=== PATIENT | female | born 1965 | race Caucasian/White ===

== ENCOUNTER 2021-03-19 02:54 | Emergency (ER) | payer OTHER, SELFPAY ==
--- NOTE | ~2021-03-19 | XR_ITS ---
EXAMINATION: XR CHEST CLINICAL INFORMATION: Chest pain COMPARISON: 01/05/2019 TECHNIQUE: Frontal view of the chest was obtained. FINDINGS: The lungs are clear with no focal consolidation. No evidence of pneumothorax, pulmonary edema, or pleural effusions. The cardiomediastinal silhouette is unremarkable. No acute osseous findings. XR/XR chest 1V IMPRESSION: No acute cardiopulmonary findings.
[2021-03-19 03:02] VITALS: BP 120/75; BP 124/72; PULSE 85; PULSE 88; RESP 20; TEMP 36.8; O2SAT 100; O2SAT 99; BMI 23.4
--- NOTE | 2021-03-19 03:02 | ECG_ITS ---
Test Reason : CP Blood Pressure : / mmHG Vent. Rate : 081 BPM Atrial Rate : 081 BPM P-R Int : 164 ms QRS Dur : 076 ms QT Int : 404 ms P-R-T Axes : 064 052 065 degrees QTc Int : 469 ms Normal sinus rhythm Normal ECG When compared with ECG of 05-JAN-2019 13:17, No significant change was found Referred By: Cleopatra Schreiber Electronically Signed By:ANNA REYES
[2021-03-19 03:26] VITALS: BP 124/72; PULSE 81; RESP 20; O2SAT 98
[2021-03-19 03:33] LABS: MANUAL DIFF FLAG NO
[2021-03-19 03:35] LABS: Basophils Percent Auto 0.6 % (0-2); Eosinophils Absolute Auto 0.1 X10*3/uL (0.0-0.4); Eosinophils Percent Auto 0.8 % (0-4); Hematocrit 47.3 % (37-47); Imm Gran Abs Auto 0.01 X10*3/uL (0.00-0.03); Imm Gran Pct Auto 0.2 % (0.0-0.4); Lymphocytes Absolute Auto 2.4 X10*3/uL (1.2-4.9); Lymphocytes Percent Auto 35.4 % (20-40); Mean Corpuscular HGB Conc 33.8 g/dl (31.0-35.0); Mean Corpuscular Hemoglobin 33.2 pg (27.0-33.0); Mean Corpuscular Volume 98.1 fL (80-98); Mean Platelet Volume 10.3 fL (9.4-12.3); Monocytes Absolute Auto 0.5 X10*3/uL (0.1-1.2); Neutrophils Absolute Auto 3.7 X10*3/uL (2.0-8.3); Platelet Count 189 X10*3/uL (160-400); Red Blood Count 4.82 X10*6/uL (4.20-5.50); Red Cell Distribution Width 14.6 % (11.0-16.0); White Blood Count 6.7 X10*3/uL (4.8-10.8)
--- NOTE | 2021-03-19 03:52 | ED.CHESTPAIN ---
HPI - Chest Pain General Chief Complaint: Chest Pain Stated Complaint: cp Time Seen by Provider: 03/19/21 03:40 Source: patient Mode of arrival: EMS History of Present Illness HPI narrative: 56-year-old female who is brought in by EMS for complaints of lateral chest wall pain for 4 days that is worse with deep inspiration and not associated with fever, chills, nausea, vomiting, diarrhea, and is and nonradiating. Patient states that she has a chronic cough secondary to smoking. Patient denies any urinary pain/burning/frequency. She denies any traumatic injury, or falls. Related Data Previous Rx's Medication Instructions Recorded cyclobenzaprine 10 mg tablet 10 mg PO TID #90 tab 09/09/20 lorazepam 0.5 mg tablet 0.5 mg PO TID PRN #90 tab 09/16/20 hydroxyzine pamoate 25 mg capsule 25 mg PO QID PRN #60 cap 11/16/20 fluoxetine 20 mg capsule 40 mg PO DAILY #90 cap 01/24/21 pantoprazole 40 mg tablet,delayed 40 mg PO DAILY #90 tab 03/07/21 release tramadol 50 mg tablet 50 mg PO Q6H PRN #60 tab 03/18/21 zolpidem 5 mg tablet 5 mg PO BEDTIME PRN #90 tab 03/18/21 Allergies Allergy/AdvReac Type Severity Reaction Status Date / Time famotidine [From Pepcid] Allergy Severe IV Verified 03/19/21 03:06 PEPCID-RESP ARREST bee pollen [BEE STINGS] Allergy Unknown ANAPHYLAXIS Verified 03/19/21 03:06 cat dander [CATS] Allergy Unknown UNKNOWN Verified 03/19/21 03:06 codeine [CODEINE] Allergy Unknown STOMACH Verified 03/19/21 03:06 UPSET NSAIDS (Non-Steroidal Allergy Unknown STOMACH Verified 03/19/21 03:06 Anti-Inflamma ULCERS [NSAIDS (NON-STEROIDAL ANTI-INFLAMMA] strawberry [STRAWBERRY] Allergy Unknown HIVESD Verified 03/19/21 03:06 ibuprofen AdvReac Unknown ulcer Verified 03/19/21 03:06 bees Allergy Unknown anaphylaxis Uncoded 03/19/21 03:06 Codeine Sulfate Allergy Unknown stomach Uncoded 03/19/21 03:06 upset HAYFEVER Allergy Unknown UNKNOWN Uncoded 03/19/21 03:06 IV PEPCID Allergy Unknown anaphylaxis Uncoded 03/19/21 03:06 IV pepcid Allergy Unknown Anaphylaxis Uncoded 03/19/21 03:06 strawberries Allergy Unknown hives Uncoded 03/19/21 03:06 NSAIDS AdvReac Unknown ulcers Uncoded 03/19/21 03:06 Review of Systems Review of Systems: Pertinent positives and negatives as stated in HPI and 10 point review systems is otherwise negative. [facility] Past Medical History Source: nursing notes reviewed Social History Social History Alcohol intake: current Alcohol intake frequency: a few times a week Smoking Status: Current every day smoker Use of substances other than those prescribed or required for medical reasons: No Advance Directives: No Advance Directives Information Provided: No Patient : No Physical Exam Vital Signs: Vital Signs: Last Vital Signs Temp 98.2 F 03/19/21 03:02 Pulse 82 03/19/21 04:12 Resp 22 H 03/19/21 04:12 BP 127/93 H 03/19/21 04:12 Pulse Ox 96 03/19/21 04:12 Body Mass Index 23.4 VITAL SIGNS: Reviewed. GENERAL: Well developed, well nourished, in no acute distress. HEAD: Normocephalic/atraumatic, EYES: PERRLA, EOMI OROPHARYNX: no oral lesions noted, posterior pharynx clear NECK: Supple, no adenopathy LUNGS: Normal breath sounds. No adventitious sounds or accessory muscle use. SpO2<96> CARDIOVASCULAR: Regular rate and rhythm without noted murmurs ABDOMEN: Soft, non-tender, non-distended with bowel sounds. MUSCULOSKELETAL: No tenderness, deformities, or effusions noted on gross inspection. EXTREMITIES: No cyanosis, clubbing or edema. SKIN: Inspection of the skin reveals no rashes NEUROLOGIC: Alert and oriented x 4. Strength and sensation to light touch were grossly intact x 4. Course Course Course Narrative: 56-year-old female with history and clinical presentation suggestive possible pancreatitis, gastritis, but less likely pneumonia or renal colic. Review of all investigations acute findings, to include EKG and high sensitivity troponin are not indicative cardiac etiology. Reevaluation(s) Reevaluation #1: Patient became very irate, pulled out her IV, and requested to be discharged. Time: 04:40 MDM - Chest Pain Lab Data Result diagrams: 03/19/21 03:25 03/19/21 03:25 Labs: Lab Results 03/19/21 03/19/21 03/19/21 Range/Units 03:25 03:25 03:25 WBC 6.7 (4.8-10.8) X10*3/uL RBC 4.82 (4.20-5.50) X10*6/uL Hgb 16.0 (12.0-16.0) g/dl Hct 47.3 H (37-47) % MCV 98.1 H (80-98) fL MCH 33.2 H (27.0-33.0) pg MCHC 33.8 (31.0-35.0) g/dl RDW 14.6 (11.0-16.0) % Plt Count 189 (160-400) X10*3/uL MPV 10.3 (9.4-12.3) fL Immature Gran % (Auto) 0.2 (0.0-0.4) % Neut % (Auto) 55.0 (45-73) % Lymph % (Auto) 35.4 (20-40) % [place] % (Auto) 8.0 (2-11) % Eos % (Auto) 0.8 (0-4) % Baso % (Auto) 0.6 (0-2) % Lymph # (Auto) 2.4 (1.2-4.9) X10*3/uL [place] # (Auto) 0.5 (0.1-1.2) X10*3/uL Eos # (Auto) 0.1 (0.0-0.4) X10*3/uL Baso # (Auto) 0.0 (0.0-0.2) X10*3/uL Abs Immat Gran (auto) 0.01 (0.00-0.03) X10*3/uL Absolute Neuts (auto) 3.7 (2.0-8.3) X10*3/uL Absolute Nucleated RBC 0.000 (0.0-0.012) X10*3/uL Nucleated RBC % (auto) 0.0 (0.0-0.2) /100WBC Hold Blue Top SEE NOTE Sodium 143 (135-145) mmol/L Potassium 3.7 (3.3-5.1) mmol/L Chloride 104 (96-108) mmol/L Carbon Dioxide 30 H (22-29) mmol/L Anion Gap 13 (12-20) BUN 8 L (9-16) mg/dL Creatinine 0.81 (0.5-1.4) mg/dL Estim Creat Clear Calc 78.2 Estimated GFR > 60 Random Glucose 73 (60-115) mg/dL Calcium 9.4 (8.4-10.2) mg/dL Troponin I High Sens (<3.5-17.0) ng/L Lipase 17 (8-78) U/L 03/19/21 03/19/21 Range/Units 03:25 03:25 WBC (4.8-10.8) X10*3/uL RBC (4.20-5.50) X10*6/uL Hgb (12.0-16.0) g/dl Hct (37-47) % MCV (80-98) fL MCH (27.0-33.0) pg MCHC (31.0-35.0) g/dl RDW (11.0-16.0) % Plt Count (160-400) X10*3/uL MPV (9.4-12.3) fL Immature Gran % (Auto) (0.0-0.4) % Neut % (Auto) (45-73) % Lymph % (Auto) (20-40) % [place] % (Auto) (2-11) % Eos % (Auto) (0-4) % Baso % (Auto) (0-2) % Lymph # (Auto) (1.2-4.9) X10*3/uL [place] # (Auto) (0.1-1.2) X10*3/uL Eos # (Auto) (0.0-0.4) X10*3/uL Baso # (Auto) (0.0-0.2) X10*3/uL Abs Immat Gran (auto) (0.00-0.03) X10*3/uL Absolute Neuts (auto) (2.0-8.3) X10*3/uL Absolute Nucleated RBC (0.0-0.012) X10*3/uL Nucleated RBC % (auto) (0.0-0.2) /100WBC Hold Blue Top Sodium (135-145) mmol/L Potassium (3.3-5.1) mmol/L Chloride (96-108) mmol/L Carbon Dioxide (22-29) mmol/L Anion Gap (12-20) BUN (9-16) mg/dL Creatinine (0.5-1.4) mg/dL Estim Creat Clear Calc Estimated GFR Random Glucose (60-115) mg/dL Calcium (8.4-10.2) mg/dL Troponin I High Sens < 3.5 (<3.5-17.0) ng/L Lipase Cancelled (8-78) U/L ECG Data ECG #1: Attestation: I personally reviewed and interpreted this ECG as follows: Prior ECG tracings: available for review (01/05/2019 no acute changes on comparison) Interpretation: Normal sinus rhythm, HR-81, no evidence of acute ischemia, RI/QRS/QTC are within normal limits. Discharge Plan Discharge Clinical Impression: Atypical chest pain, Costochondritis Patient Disposition: Home, Self-Care Instructions: Chest Wall Pain (ED), Costochondritis (ED) Additional Instructions: Please follow-up with your primary care provider in the next 2-3 days for re-evaluation. Return to the emergency department should you experience any acute worsening of your symptoms. Prescriptions: No Action cyclobenzaprine 10 mg tablet 10 mg PO TID Qty: 90 RF: 6 lorazepam 0.5 mg tablet 0.5 mg PO TID PRN (Reason: anxiety) Qty: 90 RF: 5 fluoxetine 20 mg capsule 40 mg PO DAILY Qty: 90 RF: 8 pantoprazole 40 mg tablet,delayed release (DR/EC) 40 mg PO DAILY Qty: 90 RF: 8 zolpidem 5 mg tablet 5 mg PO BEDTIME PRN (Reason: insomnia) Qty: 90 RF: 5 tramadol 50 mg tablet 50 mg PO Q6H PRN (Reason: pain) Qty: 60 RF: 5 hydroxyzine pamoate 25 mg capsule 25 mg PO QID PRN (Reason: itching) Qty: 60 RF: 0 Referrals: Eric Morales MD [Primary Care Provider] - 2 days
[2021-03-19] MEDS: Acetaminophen 325 MG TABLET 975 MG PO (03:55)
[2021-03-19 04:03] LABS: Anion Gap 13 (12-20); Blood Urea Nitrogen 8 mg/dL (9-16); Calcium 9.4 mg/dL (8.4-10.2); Carbon Dioxide 30 mmol/L (22-29); Chloride 104 mmol/L (96-108); Creatinine Clr Calc Pharmacy 78.2; Estimated Glomerular Filt Rate > 60; Glucose Random 73 mg/dL (60-115); Lipase 17 U/L (8-78); Potassium 3.7 mmol/L (3.3-5.1); Sodium 143 mmol/L (135-145)
[2021-03-19 04:07] LABS: Troponin-I High Sensitivity < 3.5 ng/L (<3.5-17.0)
[2021-03-19 04:12] VITALS: BP 127/93; PULSE 82; RESP 22; O2SAT 96
[2021-03-19] MEDS: Lidocaine HCl Viscous 2 % 15 ML SOLUTION 10 ML MUCOUS MEM (04:13)
[2021-03-19] MEDS: Magnesium Hydrox/Alum Hydrox 30 ML ORAL.SUSP PO (04:14)
--- NOTE | 2021-03-19 04:45 | PC.NURSE ---
Pt came out into hallway and removed her IV, yelled that she has been neglected for hours, and that nobody has come to help me. This RN to bedside, asks pt what this RN is able to do to assist pt with current needs. Pt states I know it's not my GI tract, so I am going home where people will ignore me there too. This RN makes Dr Schreiber aware. Dr Schreiber to pt's room, updates pt on lab and imaging findings. Pt states I just want my papers so I can leave.
== END 2021-03-19 05:09 | disposition home or self-care (01) ==
PROVIDERS: Emergency Provider Student in an Organized Health Care Education/Training Program; PCP Internal Medicine
DX: R07.89 Other chest pain (principal); M94.0 Chondrocostal junction syndrome [Tietze]; F17.200 Nicotine dependence, unspecified, uncomplicated
CPT/HCPCS: 36415; 71045; 80048; 83690; 84484; 85025; 93005; 99283; 99285

== ENCOUNTER 2021-05-03 08:54 | Outpatient (REF) | payer OTHER, SELFPAY ==
[2021-05-03 14:29] LABS: CT PCR NOT DETECTED (Not Detect.); NG PCR NOT DETECTED (Not Detect.)
[2021-05-04 09:37] LABS: BV Int Neg Control Negative (Negative); BV Int Pos Control Positive (Positive)
[2021-05-05 22:27] LABS: HPV mRNA E6/E7 rflx Not Detected (Not Detected)
== END 2021-05-03 08:55 | disposition home or self-care (01) ==
LOC: HO.LAB 08:54
PROVIDERS: Visit Provider Advanced Practice Midwife
DX: N93.0 Postcoital and contact bleeding (principal); N95.2 Postmenopausal atrophic vaginitis; N95.0 Postmenopausal bleeding; S39.93XA Unspecified injury of pelvis, initial encounter; X58.XXXA Exposure to other specified factors, initial encounter; Y93.9 Activity, unspecified; Y92.9 Unspecified place or not applicable; Y99.9 Unspecified external cause status
CPT/HCPCS: 87480; 87491; 87510; 87591; 87624; 87660; 88142; 99202

== ENCOUNTER 2021-06-15 11:01 | Outpatient (REF) | payer OTHER, SELFPAY ==
--- NOTE | ~2021-06-15 | US_ITS ---
EXAMINATION: PELVIC ULTRASOUND CLINICAL INFORMATION: Postmenopausal bleeding COMPARISON: Previous CT of the abdomen and pelvis most recent February 2019 TECHNIQUE: Transabdominal and transvaginal pelvic ultrasound was performed. Transvaginal exam was performed for better visualization of the uterus and ovaries. FINDINGS: The uterus is retroverted and measures 6.4 x 3.7 x 5.1 cm in dimension. No focal uterine lesion is seen. Endometrial thickness is normal measuring 0.3 cm. The ovaries are normal-appearing. The right ovary measures 2.9 x 1.3 x 1.4 cm. The left ovary measures 2.2 x 1.2 x 1.2 cm. There is no fluid in the pelvis. US/US pelvic and transvaginal IMPRESSION: Unremarkable exam.
== END 2021-06-15 11:02 | disposition home or self-care (01) ==
LOC: HO.US 11:01
PROVIDERS: Visit Provider Advanced Practice Midwife
DX: N95.0 Postmenopausal bleeding (principal)
CPT/HCPCS: 76830; 76856

== ENCOUNTER → 2021-06-22 11:16 | Outpatient (BNVA) | payer OTHER, SELFPAY | PROVIDERS: PCP Internal Medicine; Visit Provider Advanced Practice Midwife | DX: N95.0 Postmenopausal bleeding (principal); Z71.2 Person consulting for explanation of examination or test findings | CPT/HCPCS: Q3014 ==

== ENCOUNTER 2021-09-07 21:09 | Emergency (ER) | payer OTHER, SELFPAY ==
--- NOTE | ~2021-09-07 | XR_ITS ---
EXAMINATION: XR CHEST CLINICAL INFORMATION: Chest pain. Back pain Fall. COMPARISON: Chest x-ray March 19, 2021 TECHNIQUE: 2 views of the chest were obtained. FINDINGS: No significant abnormality is noted involving the heart, lungs, mediastinum, bony thorax or soft tissues. XR/XR chest 2V IMPRESSION: Unremarkable examination.
--- NOTE | ~2021-09-07 | XR_ITS ---
EXAMINATION: XR ELBOW, RIGHT CLINICAL INFORMATION: Pain after a fall COMPARISON: None TECHNIQUE: Single lateral view of the right elbow. Patient was unable to straighten elbow for other images. FINDINGS: No fracture. No dislocation. No joint effusion. XR/XR elbow RT 2V IMPRESSION: Normal single lateral view of the elbow.
[2021-09-07 21:20] VITALS: BP 98/68; PULSE 98; RESP 17; TEMP 35.9; O2SAT 97; BMI 21.2
--- NOTE | 2021-09-07 22:01 | ED.FALL ---
HPI - Fall General Chief Complaint: Fall Stated Complaint: fell, hit arm and head Time Seen by Provider: 09/07/21 22:01 Source: patient Mode of arrival: ambulatory Limitations: no limitations History of Present Illness HPI Narrative: This is a 56 years old of female presented ambulatory to the emergency department after a fall. She states that she fell on Sunday 4 days ago a since then she has been having chest wall pain in the right and the right elbow pain. She states that she took nonsteroidal anti-inflammatory and Flexeril without any relief of the pain MD complaint: fall Onset (ago): day(s) (4) Fall from: standing Place fall occurred: street Loss of consciousness: none Prolonged down time: no Symptoms prior to fall: none Context: tripped/slipped Related Data Previous Rx's Medication Instructions Recorded hydroxyzine pamoate 25 mg capsule 25 mg PO QID PRN #60 cap 11/16/20 fluoxetine 20 mg capsule 40 mg PO DAILY #90 cap 01/24/21 tramadol 50 mg tablet 50 mg PO Q6H PRN #60 tab 03/18/21 zolpidem 5 mg tablet 5 mg PO BEDTIME PRN #90 tab 03/18/21 lorazepam 0.5 mg tablet 0.5 mg PO TID PRN #90 tab 04/19/21 metronidazole 500 mg tablet 500 mg PO BID 7 Days #14 tab 05/05/21 (Flagyl) ropinirole 3 mg tablet 3 mg PO QPM #90 tab 05/09/21 cyclobenzaprine 10 mg tablet 10 mg PO TID #90 tab 05/25/21 albuterol sulfate 90 mcg/actuation 2 puff PO Q4H PRN #8.5 g 08/26/21 aerosol inhaler azithromycin 250 mg tablet See Rx Instructions PO .COMPLEX #6 08/26/21 tab oxycodone 5 mg tablet 5 mg PO BID PRN #8 tab 09/07/21 Allergies Allergy/AdvReac Type Severity Reaction Status Date / Time famotidine [From Pepcid] Allergy Severe IV Verified 09/07/21 21:20 PEPCID-RESP ARREST bee pollen [BEE STINGS] Allergy Unknown ANAPHYLAXIS Verified 09/07/21 21:20 cat dander [CATS] Allergy Unknown UNKNOWN Verified 09/07/21 21:20 codeine [CODEINE] Allergy Unknown STOMACH Verified 09/07/21 21:20 UPSET NSAIDS (Non-Steroidal Allergy Unknown STOMACH Verified 09/07/21 21:20 Anti-Inflamma ULCERS [NSAIDS (NON-STEROIDAL ANTI-INFLAMMA] strawberry [STRAWBERRY] Allergy Unknown HIVESD Verified 09/07/21 21:20 Antihistamines - Alkylamine AdvReac Mild Agitated Verified 09/07/21 21:20 ibuprofen AdvReac Unknown ulcer Verified 09/07/21 21:20 HAYFEVER Allergy Unknown UNKNOWN Uncoded 09/07/21 21:20 Review of Systems Review of Systems: Yes all other systems are reviewed and are negative Constitutional: Constitutional: Reports no additional constitutional complaints ENT: Reports system reviewed and no additional complaints, except as documented Cardiovascular: Cardiovascular: Reports no additional cardiovascular complaints Respiratory: Respiratory: Denies chest congestion, Denies cough and Denies hemoptysis Musculoskeletal: Musculoskeletal: Reports no additional musculoskeletal complaints PMFSH Past Medical History Medical History Adhesion of intestine Asthma Colitis Colon obstruction History of anxiety History of depression History of fibromyalgia Hx of migraine headaches Parkinson disease PTSD (post-traumatic stress disorder) Restless leg syndrome Surgical History H/O colectomy History of loop electrical excision procedure (LEEP) Hx of section Hx of tubal ligation Family History Family History Mother Cervical cancer Ovarian cancer Colon cancer Sister Breast cancer Social History Social History Alcohol intake: current Alcohol intake frequency: a few times a week Patient Tobacco Use Status: Current everyday Tobacco user Cigarettes Per Day: 4 Advance Directives: No Physical Exam Vital Signs: Vital Signs: Last Vital Signs Temp 96.7 F L 09/07/21 21:20 Pulse 98 09/07/21 21:20 Resp 17 09/07/21 21:20 BP 98/68 09/07/21 21:20 Pulse Ox 97 09/07/21 21:20 Body Mass Index 21.2 Const: General: cooperative, healthy appearing, comfortable and no acute distress Nutritional Appearance: average body habitus Orientation/consciousness: patient oriented x3 HENMT: Head: Yes normal to inspection and Yes No palpable skull fracture present General nose exam: Normal external nose present Face and sinus: Yes normal facial exam Mouth: Normal oral and palatal mucosa present Throat: Yes posterior oropharynx normal Neck: Other: Neck is supple full range of motion no tenderness Chest: Other: Chest exam shows tenderness in the right chest wall lungs are clear bilaterally Resp: Effort & Inspection: normal respiratory effort Auscultation: clear to auscultation bilaterally Cardio: Other: Heart exam is shows a regular rate and rhythm Jugular venous distension: no JVD Rhythm: regular rhythm GI: Inspection: Yes normal to inspection Palpation (GI): Soft to palpation, not firm, nontender and no guarding Auscultation: normal bowel sounds Skin: Trauma: no lacerations or abrasions Neuro: General: patient oriented x3 Extrem: Other: Patient has tenderness in the right elbow a no deformity seen Course Reevaluation(s) Reevaluation #1: Patient is fully ambulatory they x-ray of the elbow nad CXr negative we will discharge her home MDM - Fall Imaging Data Chest x-ray: Radiologist's impression: C cc: Darrian Mensah MD~ EXAMINATION: XR CHEST CLINICAL INFORMATION: Chest pain. Back pain Fall. COMPARISON: Chest x-ray March 19, 2021 TECHNIQUE: 2 views of the chest were obtained. FINDINGS: No significant abnormality is noted involving the heart, lungs, mediastinum, bony thorax or soft tissues. XR/XR chest 2V IMPRESSION: Unremarkable examination. Dictated By: ARLEY REDDY MD Signed By: <Electronically signed by ARLEY REDDY MD in OV> 09/07/212147 DD/ 22 TD/TT:? Food And Beverage Attendant: KAL Discharge Plan Discharge Clinical Impression: Fall, Contusion of chest, Contusion of elbow Patient Disposition: Home, Self-Care Instructions: Rib Contusion (ED) Additional Instructions: Follow-up with your primary care physician call tomorrow and make an appointment Prescriptions: New oxycodone 5 mg tablet 5 mg PO BID PRN (Reason: pain) Qty: 8 RF: 0 No Action fluoxetine 20 mg capsule 40 mg PO DAILY Qty: 90 RF: 8 zolpidem 5 mg tablet 5 mg PO BEDTIME PRN (Reason: insomnia) Qty: 90 RF: 5 tramadol 50 mg tablet 50 mg PO Q6H PRN (Reason: pain) Qty: 60 RF: 5 lorazepam 0.5 mg tablet 0.5 mg PO TID PRN (Reason: anxiety) Qty: 90 RF: 5 metronidazole [Flagyl] 500 mg tablet 500 mg PO BID 7 Days Qty: 14 RF: 0 ropinirole 3 mg tablet 3 mg PO QPM Qty: 90 RF: 8 cyclobenzaprine 10 mg tablet 10 mg PO TID Qty: 90 RF: 6 albuterol sulfate 90 mcg/actuation HFA aerosol inhaler 2 puff PO Q4H PRN (Reason: bronchospasm) Qty: 8.5 RF: 8 azithromycin 250 mg tablet See Rx Instructions PO .COMPLEX Qty: 6 RF: 0 hydroxyzine pamoate 25 mg capsule 25 mg PO QID PRN (Reason: itching) Qty: 60 RF: 0
[2021-09-07] MEDS: oxyCODONE HCl Immed Release 5 MG TABLET PO (22:17)
== END 2021-09-07 22:21 | disposition home or self-care (01) ==
PROVIDERS: Emergency Provider Emergency Medicine; PCP Internal Medicine
DX: S20.219A Contusion of unspecified front wall of thorax, initial encounter (principal); S50.01XA Contusion of right elbow, initial encounter; G20 Parkinson's disease; J45.909 Unspecified asthma, uncomplicated; W01.0XXA Fall on same level from slipping, tripping and stumbling without subsequent striking against object, initial encounter; Y93.9 Activity, unspecified; Y92.410 Unspecified street and highway as the place of occurrence of the external cause; Y99.9 Unspecified external cause status
CPT/HCPCS: 71046; 73070; 99283

== ENCOUNTER 2022-06-27 14:18 | Outpatient (REF) | payer OTHER, SELFPAY ==
--- NOTE | ~2022-06-27 | MM_ITS ---
EXAMINATION: MM SCREENING DIGITAL BREAST TOMOSYNTHESIS, BILATERAL CLINICAL INFORMATION: Screening. Asymptomatic. Family history breast cancer, sister. Benign left stereotactic biopsy for amorphous calcifications 04/17/2019 (stromal fibrosis and calcifications, no atypia or carcinoma). The lifetime risk of breast cancer based on the Tyrer-Cuzick Model is 21%. COMPARISON: Mammography: 04/22/2019, 04/11/2019, 03/19/2019, 10/20/2014 TECHNIQUE: Digital breast tomosynthesis is performed in both the craniocaudal and mediolateral oblique views along with computer-aided detection (CAD). Synthesized 2D images are generated from the tomosynthesis. FINDINGS: There are scattered areas of fibroglandular density (ACR BI-RADS breast composition Category b). Parenchymal pattern is similar to prior study. There is no interval mass or architectural abnormality. No developing density. No abnormal calcifications. There are 2 biopsy clip markers upper outer quadrant left breast with stable residual calcifications. The axilla and skin contours are unremarkable. MM/MM tomosynthesis screening BI IMPRESSION: No mammographic evidence of malignancy. ASSESSMENT: BI-RADS 2: Benign RECOMMENDATION: Routine annual mammography screening. This patient's information was entered into a reminder system with a target due date for their next mammogram.
== END 2022-06-27 14:19 | disposition home or self-care (01) ==
LOC: HO.MAMMO 14:18
PROVIDERS: Visit Provider Nurse Practitioner Family
DX: Z12.31 Encounter for screening mammogram for malignant neoplasm of breast (principal)
CPT/HCPCS: 77063; 77067

== ENCOUNTER 2022-09-13 02:08 | Emergency (ER) | payer OTHER, SELFPAY ==
[2022-09-13 02:12] VITALS: BP 128/84; BP 130/75; PULSE 83; PULSE 88; RESP 18; TEMP 36.9; O2SAT 96; BMI 20.9
[2022-09-13] MEDS: Acetaminophen 325 MG TABLET 975 MG PO (03:44)
[2022-09-13 04:00] VITALS: BP 117/59; PULSE 76; RESP 11; TEMP 36.7; O2SAT 96
--- NOTE | 2022-09-13 04:20 | PC.NURSE ---
pt reporting she wants to leave. stating she would be more comfortable at home. this RN notified Dr Allen of pt's statement. stated that she can leave against medical advice. spoke with pt regarding plan to get ama paperwork together. pt stated to this rn that she will wait to be seen at this time
[2022-09-13 06:00] VITALS: BP 106/60; PULSE 73; RESP 17; TEMP 36.6; O2SAT 94
--- NOTE | 2022-09-13 07:00 | ED_ITS ---
HPI - Neck Pain/Injury General Chief Complaint: Neck Pain/Injury Stated Complaint: neck stiffness Time Seen by Provider: 09/13/22 06:36 Source: patient Mode of arrival: ambulatory Limitations: no limitations History of Present Illness HPI Narrative: 57 yo female with hx of anxiety not on medications here with c/o 1130pm R side of neck is in spasm denies trauma. She has not had fevers no numbness or tingling. Hurts to move neck. She also is going to see a vascular surgeon because at times her wrist veins look bulging to her (they have since gone down and are not bulging in the ED) complaint: neck pain Onset (ago): hour(s) (1130pm) Place: home Radiation: right lateral Severity: severe Quality: spasming and throbbing Duration: constant Relieving factors: immobilization Exacerbating factors: movement of neck Context: unknown Associated symptoms: none Treatments prior to arrival: none Related Data Previous Rx's Medication Instructions Recorded cyclobenzaprine 10 mg tablet 10 mg PO TID #90 tabs 09/15/21 fluoxetine 20 mg capsule 40 mg PO DAILY #90 caps 09/15/21 lorazepam 0.5 mg tablet 0.5 mg PO TID PRN anxiety #90 tabs 09/15/21 ropinirole 3 mg tablet 3 mg PO QPM #90 tabs 09/15/21 zolpidem 5 mg tablet 5 mg PO BEDTIME PRN insomnia #90 09/15/21 tabs azithromycin 250 mg tablet See Rx Instructions PO .COMPLEX #6 01/13/22 tabs prednisone 20 mg tablet 40 mg PO DAILY 5 days #10 tabs 01/13/22 albuterol sulfate 90 mcg/actuation 2 puff PO Q4H PRN bronchospasm 06/28/22 aerosol inhaler #8.5 grams cyclobenzaprine 10 mg tablet 10 mg PO TID PRN muscle spasm #20 09/13/22 tabs lidocaine 5 % topical patch 1 patch topical DAILY #30 ea 09/13/22 Allergies Allergy/AdvReac Type Severity Reaction Status Date / Time famotidine [From Pepcid] Allergy Severe IV Verified 01/13/22 10:47 PEPCID-RESP ARREST bee pollen [BEE STINGS] Allergy Unknown ANAPHYLAXIS Verified 01/13/22 10:47 cat dander [CATS] Allergy Unknown UNKNOWN Verified 01/13/22 10:47 codeine [CODEINE] Allergy Unknown STOMACH Verified 01/13/22 10:47 UPSET NSAIDS (Non-Steroidal Allergy Unknown STOMACH Verified 01/13/22 10:47 Anti-Inflamma ULCERS [NSAIDS (NON-STEROIDAL ANTI-INFLAMMA] strawberry [STRAWBERRY] Allergy Unknown HIVESD Verified 01/13/22 10:47 Antihistamines - Alkylamine AdvReac Mild Agitated Verified 01/13/22 10:47 ibuprofen AdvReac Unknown ulcer Verified 01/13/22 10:47 HAYFEVER Allergy Unknown UNKNOWN Uncoded 01/13/22 10:47 Review of Systems Review of Systems: Constitutional : No Fever, No Chills ENT/Mouth : No Ear Pain, No Hoarseness, No sore throat Cardiovascular : No Chest Pain, No SOB Respiratory : No Cough, No Dyspnea Gastrointestinal : No Nausea, No Vomiting, No Diarrhea, No abdominal Pain Genitourinary : No Dysuria, No Hematuria Musculoskeletal : positive neck pain, No Myalgias, No Joint Swelling Skin : No Skin lacerations, No rash Neuro : No Weakness, No Numbness, No Loss of Consciousness, No Dizziness, No Headache Psych : No Anxiety/Panic, No Depression All other systems reviewed and are negative PMFSH Past Medical History Attestation statement: The following information was validated with the patient. Medical History Adhesion of intestine Asthma Colitis Colon obstruction History of anxiety History of depression History of fibromyalgia Hx of migraine headaches Parkinson disease PTSD (post-traumatic stress disorder) Restless leg syndrome Surgical History H/O colectomy History of loop electrical excision procedure (LEEP) Hx of section Hx of tubal ligation Family History Family History Mother Cervical cancer Ovarian cancer Colon cancer Sister Breast cancer Social History Social History Housing: Condominium Alcohol intake: current Alcohol intake frequency: 0-2 drinks per day Alcohol type: beer Patient Tobacco Use Status: Current everyday Tobacco user Cigarettes Per Day: 4 Smoked in Last 30 Days: Yes e-Cigarette/Vaping Use: Never Used Use of substances other than those prescribed or required for medical reasons: No Advance Directives: No Advance Directives Information Provided: No service: Yes Current occupational status: disabled Physical Exam Vital Signs: Vital Signs: Last Vital Signs Temp 98.0 F 09/13/22 07:17 Pulse 67 09/13/22 07:17 Resp 16 09/13/22 07:17 BP 102/62 09/13/22 07:17 Pulse Ox 96 09/13/22 07:17 O2 Del Method 09/13/22 06:00 BMI result Body Mass Index 20.9 Appearance: Alert. Oriented X3. No acute distress. Eyes: Pupils equal, round and reactive to light. ENT: Pharynx normal. Neck: Spasm on R side of neck reproduces pain to touch the neck CVS: Normal heart rate and rhythm. Pulses normal. Respiratory: No respiratory distress. Breath sounds normal. Abdomen: Soft and non-tender. Skin: Skin warm and dry. Normal skin color. Normal skin turgor. Extremities: No lower extremity edema. wrists are normal - pulses normal no engorged veins Neuro: Oriented X 3. No motor deficit. No sensory deficit. Course Course Course Narrative: labs stable, can be DC home MDM - Neck Pain/Injury MDM Narrative Medical decision making narrative: 57 yo female with hx of anxiety here with c/o neck being in spasm she has normal UE neuro exam, no bruit, pain is reproduceable, no fevers, no mass, doubt infection - at this time will give muscle relaxer and check lytes. Anticipate DC home with supportive care. Lab Data Result diagrams: 09/13/22 07:41 09/13/22 07:41 Labs: Lab Results 09/13/22 09/13/22 Range/Units 07:41 07:41 WBC 6.2 (4.8-10.8) X10*3/uL RBC 4.55 (4.20-5.50) X10*6/uL Hgb 14.8 (12.0-16.0) g/dl Hct 44.3 (37.0-47.0) % MCV 97.4 (80.0-98.0) fL MCH 32.5 (27.0-33.0) pg MCHC 33.4 (31.0-35.0) g/dl RDW 13.7 (11.0-16.0) % Plt Count 199 (160-400) X10*3/uL MPV 10.3 (9.4-12.3) fL Immature Gran % (Auto) 0.2 (0.0-0.4) % Neut % (Auto) 50.9 (45-73) % Lymph % (Auto) 36.8 (20-40) % [place] % (Auto) 9.5 (2-11) % Eos % (Auto) 2.1 (0-4) % Baso % (Auto) 0.5 (0-2) % Lymph # (Auto) 2.3 (1.2-4.9) X10*3/uL [place] # (Auto) 0.6 (0.1-1.2) X10*3/uL Eos # (Auto) 0.1 (0.0-0.4) X10*3/uL Baso # (Auto) 0.0 (0.0-0.2) X10*3/uL Abs Immat Gran (auto) 0.01 (0.00-0.03) X10*3/uL Absolute Neuts (auto) 3.2 (2.0-8.3) x10*3/uL Absolute Nucleated RBC 0.000 (0.0-0.012) X10*3/uL Nucleated RBC % (auto) 0.0 (0.0-0.2) /100WBC Sodium 138 (135-145) mmol/L Potassium 4.0 (3.3-5.1) mmol/L Chloride 107 (96-108) mmol/L Carbon Dioxide 23 (22-29) mmol/L Anion Gap 12 (12-20) BUN 15 (9-16) mg/dL Creatinine 0.81 (0.5-1.4) mg/dL Estim Creat Clear Calc 75.7 Estimated GFR > 60 Random Glucose 94 (60-115) mg/dL Calcium 9.2 (8.4-10.2) mg/dL Magnesium 2.3 (1.6-2.6) mg/dL Discharge Plan Discharge Clinical Impression: Strain of neck muscle Qualifiers: Encounter type: initial encounter Qualified Code(s): S16.1XXA - Strain of muscle, fascia and tendon at neck level, initial encounter Patient Disposition: Home, Self-Care Instructions: Muscle Strain (ED) Additional Instructions: return to ED for any worsening symptoms or concerns please follow up with your doctor if not better Prescriptions: New cyclobenzaprine 10 mg tablet 10 mg PO TID PRN (Reason: muscle spasm) Qty: 20 0RF lidocaine 5 % adhesive patch,medicated 1 patch topical DAILY Qty: 30 0RF Rx Instructions: leave on most painful area for up to 12 hrs No Action cyclobenzaprine 10 mg tablet 10 mg PO TID Qty: 90 8RF fluoxetine 20 mg capsule 40 mg PO DAILY Qty: 90 8RF lorazepam 0.5 mg tablet 0.5 mg PO TID PRN (Reason: anxiety) Qty: 90 5RF ropinirole 3 mg tablet 3 mg PO QPM Qty: 90 8RF zolpidem 5 mg tablet 5 mg PO BEDTIME PRN (Reason: insomnia) Qty: 90 5RF albuterol sulfate 90 mcg/actuation HFA aerosol inhaler 2 puff PO Q4H PRN (Reason: bronchospasm) Qty: 8.5 0RF azithromycin 250 mg tablet See Rx Instructions PO .COMPLEX Qty: 6 0RF Rx Instructions: take 500 mg today (day 1), then 250 mg for 4 days (days 2-5) PO prednisone 20 mg tablet 40 mg PO DAILY 5 Days Qty: 10 0RF Stand Alone Forms: Work/School Release
[2022-09-13] MEDS: diazePAM 2 MG TABLET 5 MG PO (07:15)
[2022-09-13 07:17] VITALS: BP 102/62; PULSE 67; RESP 16; TEMP 36.7; O2SAT 96
[2022-09-13 07:46] LABS: MANUAL DIFF FLAG NO
[2022-09-13 07:47] LABS: Basophils Percent Auto 0.5 % (0-2); Eosinophils Absolute Auto 0.1 X10*3/uL (0.0-0.4); Eosinophils Percent Auto 2.1 % (0-4); Hematocrit 44.3 % (37.0-47.0); Hemoglobin 14.8 g/dl (12.0-16.0); Imm Gran Abs Auto 0.01 X10*3/uL (0.00-0.03); Imm Gran Pct Auto 0.2 % (0.0-0.4); Lymphocytes Absolute Auto 2.3 X10*3/uL (1.2-4.9); Lymphocytes Percent Auto 36.8 % (20-40); Mean Corpuscular HGB Conc 33.4 g/dl (31.0-35.0); Mean Corpuscular Hemoglobin 32.5 pg (27.0-33.0); Mean Corpuscular Volume 97.4 fL (80.0-98.0); Mean Platelet Volume 10.3 fL (9.4-12.3); Monocytes Absolute Auto 0.6 X10*3/uL (0.1-1.2); Monocytes Percent Auto 9.5 % (2-11); Neutrophils Absolute Auto 3.2 x10*3/uL (2.0-8.3); Neutrophils Percent Auto 50.9 % (45-73); Platelet Count 199 X10*3/uL (160-400); Red Blood Count 4.55 X10*6/uL (4.20-5.50); Red Cell Distribution Width 13.7 % (11.0-16.0); White Blood Count 6.2 X10*3/uL (4.8-10.8)
[2022-09-13 08:04] LABS: Anion Gap 12 (12-20); Blood Urea Nitrogen 15 mg/dL (9-16); Calcium 9.2 mg/dL (8.4-10.2); Carbon Dioxide 23 mmol/L (22-29); Chloride 107 mmol/L (96-108); Creatinine Clr Calc Pharmacy 75.7; Estimated Glomerular Filt Rate > 60; Glucose Random 94 mg/dL (60-115); Magnesium 2.3 mg/dL (1.6-2.6); Sodium 138 mmol/L (135-145)
--- NOTE | 2022-09-13 08:25 | PC.NURSE ---
patient a/ox4 . francisco . heart rate regular at 72 beats per minute . lungs clear throughout . breathing even and unlabored . skin pink warm and dry . pain level in neck 8 out of 10 . medicated as ordered by provider . abdomen soft non tender . positive bowel sounds in all four quadrants . patient aware of plan of care .
--- NOTE | 2022-09-13 08:28 | PC.NURSE ---
patient a/ox4 . patient pain has been relieved by previous medication .went over discharge instructions as ordered by provider . patient has no questions at this time .
== END 2022-09-13 08:30 | disposition home or self-care (01) ==
PROVIDERS: Emergency Provider Emergency Medicine
DX: M54.2 Cervicalgia (principal); M54.50 Low back pain, unspecified; Z79.899 Other long term (current) drug therapy
CPT/HCPCS: 36415; 80048; 83735; 85025; 99283; 99284

== ENCOUNTER → 2023-01-02 13:04 | Outpatient (BNVA) | payer OTHER, SELFPAY | PROVIDERS: Visit Provider Surgery Vascular Surgery | DX: I73.00 Raynaud's syndrome without gangrene (principal) | CPT/HCPCS: 99202 ==

== ENCOUNTER 2023-02-25 11:10 | Emergency (ER) | payer OTHER, SELFPAY ==
--- NOTE | ~2023-02-25 | XR_ITS ---
EXAMINATION: XR RIBS, RIGHT CLINICAL INFORMATION: Right anterior/lower rib pain after coughing. COMPARISON: Most recent chest radiograph dated 09/07/2021. TECHNIQUE: 3 views of the right ribs were obtained. FINDINGS: No airspace consolidation. No pleural effusion or pneumothorax. Stable cardiomediastinal silhouette. Nondisplaced, oblique fractures through the anterolateral aspect of the right 7th and 8th ribs. No lytic or blastic osseous lesion. No abnormal soft tissue calcification. XR/XR ribs RT min 3V w CXR1V IMPRESSION: Nondisplaced, oblique fractures through the anterolateral aspect of the right 7th and 8th ribs.
[2023-02-25 11:21] VITALS: BP 100/58; BP 122/80; PULSE 78; PULSE 86; RESP 20; TEMP 36.3; O2SAT 95; O2SAT 97; BMI 21.6
[2023-02-25] MEDS: Lidocaine 4 % Patch ADH..PATCH 1 PATCH TRANSDERMA (11:57)
[2023-02-25] MEDS: Ketorolac Tromethamine 30 MG/ML VIAL IM (11:57)
--- NOTE | 2023-02-25 11:58 | ED.URI ---
HPI - URI/Sore Throat General Chief Complaint: Upper Respiratory Symptoms Stated Complaint: R rib pain per EMS Time Seen by Provider: 02/25/23 11:12 Source: patient Mode of arrival: ambulatory History of Present Illness HPI Narrative: 50-year-old female with a past medical history of asthma, colitis, anxiety, depression, Parkinson's, PTSD, restless leg syndrome, recently diagnosed with bronchitis on Z-Waldo, presenting to the ED complaining of right rib pain s/p coughing fit & feeling rib crack. Reports SOB secondary to pain, pain worse with deep breathing/palpation. Denies direct injury/trauma or fall, abdominal pain, nausea/vomiting Related Data Previous Rx's Medication Instructions Recorded albuterol sulfate 90 mcg/actuation 2 puff PO Q4H PRN bronchospasm 30 02/06/23 aerosol inhaler days #8.5 grams amoxicillin 500 mg tablet 500 mg PO Q8H 7 days #21 tabs 02/06/23 cyclobenzaprine 10 mg tablet 10 mg PO BEDTIME 90 days #90 tabs 02/06/23 lorazepam 0.5 mg tablet 0.5 mg PO BID PRN anxiety 30 days 02/06/23 #60 tabs pantoprazole 40 mg tablet,delayed 40 mg PO DAILY #90 tabs 02/06/23 release (Protonix) ropinirole 3 mg tablet 3 mg PO QPM 90 days #90 tabs 02/06/23 zolpidem 5 mg tablet 5 mg PO BEDTIME insomnia 90 days 02/06/23 #90 tabs tramadol 50 mg tablet 50 mg PO DAILY PRN pain (scale 02/07/23 score 7-10) 7 days #7 tabs benzonatate 200 mg capsule 200 mg PO TID 5 days #15 caps 02/14/23 valacyclovir 1 gram tablet 1,000 mg PO Q8H 7 days #21 tabs 02/19/23 (Valtrex) azithromycin 250 mg tablet See Rx Instructions PO .COMPLEX #6 02/22/23 tabs hydrocodone 5 mg-acetaminophen 325 1 tab PO BID PRN pain 3 days #6 02/22/23 mg tablet tabs albuterol sulfate 90 mcg/actuation 2 puff inhalation Q4-6H PRN 02/25/23 aerosol inhaler shortness of breath or wheezing #6.7 grams diclofenac sodium 1 % topical gel 2 g topical QID #100 grams 02/25/23 (Arthritis Pain (diclofenac)) hydrocodone 5 mg-acetaminophen 325 1 tab PO Q8H PRN pain, severe 3 02/25/23 mg tablet days #9 tabs Allergies Allergy/AdvReac Type Severity Reaction Status Date / Time famotidine [From Pepcid] Allergy Severe IV Verified 02/06/23 14:14 PEPCID-RESP ARREST bee pollen [BEE STINGS] Allergy Unknown ANAPHYLAXIS Verified 02/06/23 14:14 cat dander [CATS] Allergy Unknown UNKNOWN Verified 02/06/23 14:14 codeine [CODEINE] Allergy Unknown STOMACH Verified 02/06/23 14:14 UPSET NSAIDS (Non-Steroidal Allergy Unknown STOMACH Verified 02/06/23 14:14 Anti-Inflamma ULCERS [NSAIDS (NON-STEROIDAL ANTI-INFLAMMA] strawberry [STRAWBERRY] Allergy Unknown HIVESD Verified 02/06/23 14:14 Antihistamines - Alkylamine AdvReac Mild Agitated Verified 02/06/23 14:14 ibuprofen AdvReac Unknown ulcer Verified 02/06/23 14:14 HAYFEVER Allergy Unknown UNKNOWN Uncoded 01/13/22 10:47 Review of Systems Review of Systems: Constitutional: No Fever, No Chills ENT/Mouth: No Ear Pain, No Nasal Congestion, No sore throat, No Rhinorrhea, No Swallowing Difficulty Cardiovascular: +Chest Wall Pain, + SOB Respiratory: No Cough, No Sputum, No Wheezing Gastrointestinal: No Nausea, No Vomiting, No Diarrhea, No Constipation, No Abdominal pain Genitourinary: No Dysuria, No Urinary Frequency, No Hematuria, No Flank Pain Musculoskeletal: No joint pain, No Myalgias, No Joint Swelling Skin: No Skin Lesions, No rash Neuro: No Weakness, No Numbness, No Paresthesias Yes all other systems are reviewed and are negative Constitutional: Constitutional: Reports as per [facility] Past Medical History Attestation statement: The following information was validated with the patient. Medical History Adhesion of intestine Asthma Colitis Colon obstruction History of anxiety History of depression History of fibromyalgia Hx of migraine headaches Parkinson disease PTSD (post-traumatic stress disorder) Restless leg syndrome Surgical History H/O colectomy History of loop electrical excision procedure (LEEP) Hx of section Hx of tubal ligation Family History Family History Mother Cervical cancer Ovarian cancer Colon cancer Sister Breast cancer Family/Other Mental health disorder Substance use disorder Social History Social History Housing: Condominium Alcohol intake: former Patient Tobacco Use Status: Current everyday Tobacco user Tobacco use type: Cigarette Cigarettes Per Day: 10 e-Cigarette/Vaping Use: Never Used Second Hand Smoke Exposure: No Advance Directives: No Advance Directives Information Provided: Yes service: Yes Current occupational status: disabled Cognitive needs: No Hearing needs: No Vision needs: Yes Physical Exam Vital Signs: Vital Signs: Last Vital Signs Temp 97.4 F 02/25/23 11:21 Pulse 78 02/25/23 11:21 Resp 20 02/25/23 11:21 BP 100/58 L 02/25/23 11:21 Pulse Ox 95 02/25/23 11:21 O2 Del Method Room Air 02/25/23 11:21 BMI result Body Mass Index 21.6 Const: General: cooperative, healthy appearing and no acute distress Orientation/consciousness: patient oriented x3 Limitations: no limitations HEENT: Head: Yes normal to inspection and Yes atraumatic Ears: hearing grossly normal bilaterally General nose exam: Normal external nose present Face and sinus: Yes normal facial exam Eyes: General: appearance normal, both eyes and all related structures EOM: EOMs intact bilaterally Neck: Neck: Yes normal visual inspection and Yes no meningeal signs Chest: Other: + tenderness to palpation to right anterior lateral chest wall. No erythema / ecchymosis. No flail chest. Chest palpation & inspection: normal inspection of the chest, no crepitus and tenderness Resp: Effort & Inspection: normal respiratory effort and no respiratory distress Auscultation: clear to auscultation bilaterally, no crackles and no wheezes Cardio: Rate: regular rate Heart sounds: S1 normal heart sound present and S2 normal heart sound present GI: Inspection: Yes normal to inspection Palpation (GI): Soft to palpation, nontender, no guarding and not rigid : General: Yes no CVA tenderness Back/Spine/Pelvis: Back: no CVA tenderness Skin: Rashes: no rashes Wounds: no wounds Neuro: General: patient oriented x3, tone normal and no meningeal signs Gait exam (Neuro): Normal gait present Extrem: General: Yes normal to inspection Course Course Course Narrative: XR ribs RT min 3V w CXR1V IMPRESSION: Nondisplaced, oblique fractures through the anterolateral aspect of the right 7th and 8th ribs. > Results discussed with patient including worrisome signs and symptoms and strict return precautions, and when to return to the emergency department. They verbalized understanding and feel safe for discharge at this time. Medications Administered Discontinued Medications Generic Name Dose Route Start Last Admin Trade Name Freq PRN Reason Stop Dose Admin Ketorolac Tromethamine 30 mg 02/25/23 11:51 02/25/23 11:57 Ketorolac Tromethamine 30 Mg/Ml Vial IM 02/25/23 11:52 30 mg ONCE ONE Administration Lidocaine 1 patch 02/25/23 11:51 02/25/23 11:57 Lidocaine 4 % Patch Adh..Patch TRANSDERMA 02/25/23 11:52 1 patch ONCE ONE Administration Protocol Oxycodone HCl 5 mg 02/25/23 12:44 02/25/23 12:51 Oxycodone Hcl Immed Release 5 Mg Tablet PO 02/25/23 12:45 5 mg ONCE ONE Administration Medical Decision Making Medical Decision Making [facility] Narrative: 50-year-old female with a past medical history of asthma, colitis, anxiety, depression, Parkinson's, PTSD, restless leg syndrome, recently diagnosed with bronchitis on Z-Waldo, presenting to the ED complaining of right rib pain s/p coughing fit & feeling rib crack. On exam vital signs stable, NAD, appears in pain, physical exam as above with reproducible right-sided rib pain. No evidence of flail chest or infection. Concern for rib fracture vs contusion vs underlying pneumonia. Low suspicion for ACS/PE Plan: X-rays, pain control Please refer to course for remaining clinical decision making, interpretation of labs/imaging results, and discussions with consultants and/or family members. Differential Diagnosis Differential Diagnoses: The differential diagnosis associated with the presentation includes As above Admission/Observation Consideration of admission/observation: Escalation of care including admission/observation considered Lab Data [facility] Lab Attestation statement: I reviewed the patient's lab results. Radiology Impression Discussion of test interpretation with radiology: I have reviewed the radiologist's reading. External Record Review External record reviewed: Inpatient record, Office record, Outpatient record, Prior outpatient labs, Prior outpatient radiology, Primary care record and Outside ED record Discharge Plan Discharge Clinical Impression: Multiple rib fractures Patient Disposition: Home, Self-Care Instructions: Rib Fracture (ED) Additional Instructions: you have a fracture of ribs 7 & 8 use patches and topical Diclofenac for pain additionally [place] is an opiate pain medication, take when pain is severe for the next 3 days. be aware this has tylenol mixed in, do not exceed 4g tylenol in one day use incentive spirometer at home if symptoms persist or worsen or you develop fever/constant pain/redness return to the ED Prescriptions: New diclofenac sodium [Arthritis Pain (diclofenac)] 1 % gel 2 g topical QID Qty: 100 0RF Rx Instructions: apply to single elbow, wrist or hand; for hand includes palm/fingers/back of hand hydrocodone-acetaminophen 5-325 mg tablet 1 tab PO Q8H PRN (Reason: pain, severe) 3 Days Qty: 9 0RF Rx Instructions: Partial Fill upon patient request. albuterol sulfate 90 mcg/actuation HFA aerosol inhaler 2 puff inhalation Q4-6H PRN (Reason: shortness of breath or wheezing) Qty: 6.7 0RF No Action benzonatate 200 mg capsule 200 mg PO TID 5 Days Qty: 15 0RF valacyclovir [Valtrex] 1 gram tablet 1,000 mg PO Q8H 7 Days Qty: 21 0RF azithromycin 250 mg tablet See Rx Instructions PO .COMPLEX Qty: 6 0RF Rx Instructions: For 250 mg dose pack: take 500 mg today (day 1), then 250 mg for 4 days (days 2-5) PO hydrocodone-acetaminophen 5-325 mg tablet 1 tab PO BID PRN (Reason: pain) 3 Days Qty: 6 0RF Rx Instructions: Partial Fill upon patient request. zolpidem 5 mg tablet 5 mg PO BEDTIME 90 Days Qty: 90 1RF lorazepam 0.5 mg tablet 0.5 mg PO BID PRN (Reason: anxiety) 30 Days Qty: 60 3RF cyclobenzaprine 10 mg tablet 10 mg PO BEDTIME 90 Days Qty: 90 1RF ropinirole 3 mg tablet 3 mg PO QPM 90 Days Qty: 90 3RF amoxicillin 500 mg tablet 500 mg PO Q8H 7 Days Qty: 21 0RF albuterol sulfate 90 mcg/actuation HFA aerosol inhaler 2 puff PO Q4H PRN (Reason: bronchospasm) 30 Days Qty: 8.5 3RF pantoprazole [Protonix] 40 mg tablet,delayed release (DR/EC) 40 mg PO DAILY Qty: 90 2RF tramadol 50 mg tablet 50 mg PO DAILY PRN (Reason: pain (scale score 7-10)) 7 Days Qty: 7 0RF Rx Instructions: Only use for pain scales 7-10 Referrals: Mau Solis PA-C [Primary Care Provider] - 3 days Interventions: ED Discharge Assessment Last Done: 02/25/23 13:09 Discharge Date/Time: 02/25/23 13:10
[2023-02-25] MEDS: oxyCODONE HCl Immed Release 5 MG TABLET PO (12:51)
== END 2023-02-25 13:10 | disposition home or self-care (01) ==
PROVIDERS: Emergency Provider Emergency Medicine; PCP Physician Assistant
DX: S22.41XA Multiple fractures of ribs, right side, initial encounter for closed fracture (principal); R07.81 Pleurodynia; R05.9 Cough, unspecified; F17.210 Nicotine dependence, cigarettes, uncomplicated; X58.XXXA Exposure to other specified factors, initial encounter; Y93.9 Activity, unspecified; Y92.9 Unspecified place or not applicable; Y99.9 Unspecified external cause status; Z79.899 Other long term (current) drug therapy; Z71.6 Tobacco abuse counseling
CPT/HCPCS: 71101; 96372; 99284; J1885

== ENCOUNTER 2023-03-20 15:57 | Emergency (ER) | payer OTHER, SELFPAY | END 2023-03-20 18:16 | disposition left against medical advice (07) | PROVIDERS: Emergency Provider Emergency Medicine; PCP Physician Assistant | DX: R10.9 Unspecified abdominal pain (principal) ==

== ENCOUNTER 2023-04-03 11:50 | Outpatient (REF) | payer OTHER, SELFPAY ==
--- NOTE | ~2023-04-03 | XR_ITS ---
EXAMINATION: XR FACIAL BONES CLINICAL INFORMATION: Maxillary fracture, right. COMPARISON: None available. TECHNIQUE: 5 views of the facial bones. FINDINGS: Visualized paranasal sinuses and mastoid air cells are unremarkable. There is evidence of an old distal tip nasal fracture without displacement with no overlying soft tissue swelling appreciated. There is question of a nondisplaced maxillary spine fracture. No other definite bony abnormality is identified on this plain film study. XR/XR facial bones min 3V IMPRESSION: Question old nondisplaced nasal bone fracture. Probable age-indeterminate nondisplaced maxillary spine fracture.
--- NOTE | ~2023-04-03 | XR_ITS ---
EXAMINATION: XR THORACOLUMBAR SPINE CLINICAL INFORMATION: Radiculopathy, thoracic region. COMPARISON: 02/21/2016. TECHNIQUE: 3 views of the thoracic spine. FINDINGS: There is no evidence of acute fracture of the thoracic spine. Disc spaces are generally maintained. There is minimal spurring seen at multiple levels. Paraspinal line appears unremarkable. Pedicles appear intact. There is minimal scoliosis which may be positional within the upper thoracic spine convex right and lower thoracic spine convex left. There is noted to be significant degenerative disc disease seen within the cervical spine C5-C7 with 4 mm of anterior subluxation of C4 on C5. XR/XR thoracic spine 2V IMPRESSION: No significant thoracic spine abnormality appreciated. Cervical spondylosis as described.
[2023-04-03 13:51] LABS: Hematocrit 50.9 % (37.0-47.0); Hemoglobin 16.6 g/dl (12.0-16.0); Mean Corpuscular HGB Conc 32.6 g/dl (31.0-35.0); Mean Corpuscular Hemoglobin 33.1 pg (27.0-33.0); Mean Corpuscular Volume 101.6 fL (80.0-98.0); Mean Platelet Volume 10.1 fL (9.4-12.3); Platelet Count 193 X10*3/uL (160-400); Red Blood Count 5.01 X10*6/uL (4.20-5.50); Red Cell Distribution Width 13.7 % (11.0-16.0); White Blood Count 5.5 X10*3/uL (4.8-10.8)
[2023-04-03 14:33] LABS: Alanine Aminotransferase 22 U/L (0-31); Albumin Level 3.9 g/dL (3.5-5.0); Alkaline Phosphatase 112 U/L (39-117); Anion Gap 11 (12-20); Aspartate Amino Transferase 25 U/L (5-31); Bilirubin Total 0.4 mg/dL (0.0-1.0); Blood Urea Nitrogen 10 mg/dL (9-16); Calcium 9.5 mg/dL (8.4-10.2); Carbon Dioxide 26 mmol/L (22-29); Chloride 108 mmol/L (96-108); Cholesterol 213 mg/dL; Estimated Glomerular Filt Rate > 60; Glucose Fasting 77 mg/dL (60-99); HDL Cholesterol 73 mg/dL; LDL Cholesterol Calculated 123 mg/dl; Potassium 5.2 mmol/L (3.3-5.1); Sodium 140 mmol/L (135-145); Total Protein 6.7 g/dL (6.5-8.0); Triglycerides 88 mg/dL
[2023-04-03 14:50] LABS: TSH reflex Free T4 2.31 uIU/mL (0.32-4.0)
== END 2023-04-03 11:51 | disposition home or self-care (01) ==
LOC: HO.LAB 11:50
PROVIDERS: PCP Physician Assistant; Visit Provider Physician Assistant
DX: Z13.220 Encounter for screening for lipoid disorders (principal); Z13.29 Encounter for screening for other suspected endocrine disorder; M54.14 Radiculopathy, thoracic region; S02.40CD Maxillary fracture, right side, subsequent encounter for fracture with routine healing; F17.200 Nicotine dependence, unspecified, uncomplicated
CPT/HCPCS: 36415; 70150; 72070; 80053; 80061; 84443; 85027

== ENCOUNTER 2023-06-01 16:02 | Emergency (ER) | payer OTHER, SELFPAY ==
[2023-06-01 16:05] VITALS: BP 112/75; PULSE 96; RESP 18; TEMP 36.4; O2SAT 96; BMI 22.3
--- NOTE | 2023-06-01 16:05 | ED_ITS ---
HPI - General Adult General Chief complaint: Animal Bite Stated complaint: Allergic reaction/bee stings Time Seen by Provider: 06/01/23 16:17 Source: patient Mode of arrival: ambulatory Limitations: no limitations History of Present Illness HPI narrative: Patient was stung by yellow jackets. Did not take any medications. Patient is anxious Onset (ago): minute(s) Related Data Previous Rx's Medication Instructions Recorded ropinirole 3 mg tablet 3 mg PO QPM 90 days #90 tabs 02/06/23 albuterol sulfate 90 mcg/actuation 2 puff inhalation Q4-6H PRN 02/25/23 aerosol inhaler shortness of breath or wheezing #6.7 grams cyclobenzaprine 10 mg tablet 10 mg PO BEDTIME 90 days #90 tabs 05/07/23 pantoprazole 40 mg tablet,delayed 40 mg PO DAILY #90 tabs 05/08/23 release (Protonix) valacyclovir 1 gram tablet 1,000 mg PO Q8H 7 days #21 tabs 05/09/23 (Valtrex) lorazepam 0.5 mg tablet 0.5 mg PO BID PRN anxiety 30 days 05/29/23 #60 tabs tramadol 50 mg tablet 50 mg PO BID-TID PRN pain 2 days 05/29/23 #5 tabs zolpidem 5 mg tablet 5 mg PO BEDTIME insomnia 90 days 05/29/23 #90 tabs diphenhydramine HCl 25 mg capsule 25 mg PO TID PRN allergic reaction 06/01/23 (Benadryl) #20 caps Allergies Allergy/AdvReac Type Severity Reaction Status Date / Time famotidine [From Pepcid] Allergy Severe IV Verified 06/01/23 16:07 PEPCID-RESP ARREST bee pollen [BEE STINGS] Allergy Unknown ANAPHYLAXIS Verified 06/01/23 16:07 cat dander [CATS] Allergy Unknown UNKNOWN Verified 06/01/23 16:07 codeine [CODEINE] Allergy Unknown STOMACH Verified 06/01/23 16:07 UPSET NSAIDS (Non-Steroidal Allergy Unknown STOMACH Verified 06/01/23 16:07 Anti-Inflamma ULCERS [NSAIDS (NON-STEROIDAL ANTI-INFLAMMA] strawberry [STRAWBERRY] Allergy Unknown HIVESD Verified 06/01/23 16:07 Antihistamines - Alkylamine AdvReac Mild Agitated Verified 06/01/23 16:07 ibuprofen AdvReac Unknown ulcer Verified 06/01/23 16:07 HAYFEVER Allergy Unknown UNKNOWN Uncoded 06/01/23 16:07 Review of Systems Review of Systems: Yes all other systems are reviewed and are negative [facility] Past Medical History Medical History Adhesion of intestine Asthma Colitis History of anxiety History of depression History of fibromyalgia Hx of migraine headaches Maxillary fracture Nicotine dependence, cigarettes, uncomplicated Parkinson disease PTSD (post-traumatic stress disorder) Restless leg syndrome Surgical History History of abdominal surgery History of section History of colonoscopy History of endoscopy History of loop electrical excision procedure (LEEP) History of partial colectomy History of tubal ligation Family History Family History Mother Cervical cancer Ovarian cancer Colon cancer Sister Breast cancer Family/Other Mental health disorder Substance use disorder Social History Social History Housing: Condominium Alcohol intake: current Alcohol intake frequency: a few times a week Alcohol type: beer Patient Tobacco Use Status: Current everyday Tobacco user Tobacco use type: Cigarette Cigarettes Per Day: 10 e-Cigarette/Vaping Use: Never Used Second Hand Smoke Exposure: No Advance Directives: No Advance Directives Information Provided: Yes service: Yes Current occupational status: disabled Cognitive needs: No Hearing needs: No Vision needs: Yes Physical Exam ED Vital Signs: Vital Signs - 24 hr 06/01/23 16:05 Temperature 97.6 F Pulse Rate 96 Respiratory Rate 18 Blood Pressure 112/75 Pulse Oximetry 96 BMI result Body Mass Index 22.3 Const Other: anxious Nutritional Appearance: average body habitus Orientation/consciousness: oriented to person and patient oriented x3 Limitations: no limitations HENMT Head: Yes normal to inspection Ears: external ears normal General nose exam: Normal external nose present Mouth: Normal oral and palatal mucosa present and oropharynx normal Throat: Yes posterior oropharynx normal Eyes General: appearance normal, both eyes and all related structures Neck Neck: Yes normal visual inspection Chest Chest palpation & inspection: normal inspection of the chest Resp Auscultation: clear to auscultation bilaterally Cardio Jugular venous distension: no JVD Rate: regular rate Rhythm: regular rhythm Heart sounds: S1 normal heart sound present and S2 normal heart sound present GI Inspection: Yes normal to inspection Palpation (GI): Soft to palpation, nontender and No hepatosplenomegaly present Auscultation: normal bowel sounds General: Yes no CVA tenderness Back/Spine/Pelvis Back: no CVA tenderness Skin Other: stings to hand, foot, and chest no hives Neuro General: oriented to person and patient oriented x3 Cranial nerves: Yes CN's II-XII intact bilaterally Motor exam (neuro): 5/5 motor strength present throughout Extrem General: Yes normal to inspection Psych Appearance: grossly normal Course Course Course Narrative: RME performed by Nida Diana PA-C. Patient is a 58 year old assigned female at presenting to the emergency department with an allergic reaction. Patient states that she was working in her yard when she was swarmed and attacked by bees. Patient has not had epi yet today. Patient placed back in the waiting room pending room availability. Reevaluation(s) Reevaluation #1: physician observation: Patient states history of anaphylaxis, currently under observation to make sure she does not get worse Time: 16:47 Reevaluation #2: patient wants to be discharged home end of physician observation, no hives, no tongue swelling, clear lungs Time: 17:23 Medications Administered Discontinued Medications Generic Name Dose Route Start Last Admin Trade Name Freq PRN Reason Stop Dose Admin Diphenhydramine HCl 25 mg 06/01/23 16:20 06/01/23 16:25 Diphenhydramine Hcl 25 Mg Capsule PO 06/01/23 16:21 25 mg ONCE ONE Administration Lorazepam 0.5 mg 06/01/23 16:21 06/01/23 16:25 Lorazepam 0.5 Mg Tablet PO 06/01/23 16:22 0.5 mg ONCE ONE Administration Medical Decision Making Differential Diagnosis Differential Diagnoses: The differential diagnosis associated with the p resentation includes (allergic reaction, anaphylaxis, bee sting) Admission/Observation Consideration of admission/observation: Escalation of care including admission/observation considered (upon arrival this patient with prior anaphylaxis was considered for admission upon arrival) Tests considered The following testing was considered but not selected: CBC and chem 7 were considered but patient currently stable. CXR was considered but patients breathing has settled down Prescription Management I considered prescription management with: Other (steroids were considered, epi pen was considered) Discharge Plan Discharge Clinical Impression: Bee sting Patient Disposition: Home, Self-Care Instructions: Insect Bite or Sting (ED) Prescriptions: New diphenhydramine HCl [Benadryl] 25 mg capsule 25 mg PO TID PRN (Reason: allergic reaction) Qty: 20 0RF No Action cyclobenzaprine 10 mg tablet 10 mg PO BEDTIME 90 Days Qty: 90 1RF pantoprazole [Protonix] 40 mg tablet,delayed release (DR/EC) 40 mg PO DAILY Qty: 90 2RF lorazepam 0.5 mg tablet 0.5 mg PO BID PRN (Reason: anxiety) 30 Days Qty: 60 3RF tramadol 50 mg tablet 50 mg PO BID-TID PRN (Reason: pain ) 2 Days Qty: 5 0RF Rx Instructions: Take as needed only for severe pain (scale of 7-10) zolpidem 5 mg tablet 5 mg PO BEDTIME 90 Days Qty: 90 1RF albuterol sulfate 90 mcg/actuation HFA aerosol inhaler 2 puff inhalation Q4-6H PRN (Reason: shortness of breath or wheezing) Qty: 6.7 0RF ropinirole 3 mg tablet 3 mg PO QPM 90 Days Qty: 90 3RF valacyclovir [Valtrex] 1 gram tablet 1,000 mg PO Q8H 7 Days Qty: 21 0RF Referrals: Mau Solis PA-C [Primary Care Provider] - 1 week
[2023-06-01] MEDS: LORazepam 0.5 MG TABLET PO (16:25)
[2023-06-01] MEDS: diphenhydrAMINE HCL 25 MG CAPSULE PO (16:25)
--- NOTE | 2023-06-01 16:25 | PC.NURSE ---
Pt here after being stung by yellow jackets with known allergy, reports tongue tingling and floaters in eyes. Pt speaking full sentences, no SOB noted. No facial edema, airway patent. Dr Gonzales to bedside. Medicated as charted.
== END 2023-06-01 17:30 | disposition home or self-care (01) ==
PROVIDERS: Emergency Provider Emergency Medicine; PCP Physician Assistant
DX: T63.441A Toxic effect of venom of bees, accidental (unintentional), initial encounter (principal); Y92.017 Garden or yard in single-family (private) house as the place of occurrence of the external cause
CPT/HCPCS: 99283

== ENCOUNTER 2023-06-05 12:41 | Outpatient (REF) | payer OTHER, SELFPAY ==
--- NOTE | ~2023-06-05 | MM_ITS ---
EXAMINATION: BONE DENSITOMETRY CLINICAL INDICATION: Encounter for screening for osteoporosis. COMPARISON: This is the patient's baseline examination. TECHNIQUE: Using a [employer] DXA System (software version: 13.1) manufactured by [employer], dual-energy x-ray absorptiometry was performed of the lumbar spine and left hip. The images are of good technical quality. Summary results are attached. FINDINGS: AP SPINE L1-L4: BMD 0.964 g/cm2, Z-score -0.8, T-score -1.8, osteopenia. LEFT FEMUR, NECK: BMD 0.716 g/cm2, Z-score -1.2, T-score -2.3, osteopenia. LEFT FEMUR, TOTAL: BMD 0.700 g/cm2, Z-score -1.6, T-score -2.4, osteopenia. IDENTIFIED RISK FACTORS: History of adult fracture. Current smoker. Recurrent falls. Height loss. Low calcium intake. Menopause. HISTORY OF FRACTURE: Other (rib). MEDICATIONS: None listed. MM/XR DEXA axial skeleton IMPRESSION: 1. DIAGNOSIS: Osteopenia based on the lowest T-score value of -2.4 in the total femur applying World Health Organization criteria. 2. 10-YEAR FRACTURE RISK PREDICTION, FRAX: Major osteoporotic fracture (clinical spine, forearm, hip or shoulder) 17.5%. Hip fracture 5.1%. 3. Treatment Recommendations: NOF guidelines recommend consideration for treatment in postmenopausal women and men age 50 and older presenting with the following: -A hip or vertebral (clinical or morphometric) fracture. -T-score less than or equal to -2.5 at the femoral neck or spine after appropriate evaluation to exclude secondary causes. -Low bone mass at the hip or spine and a 10-year fracture probability by FRAX of greater than or equal to 3% for hip fracture or greater than or equal to 20% for major osteoporotic fracture based on the [place] adapted WHO algorithm. 4. Other Recommendations: All treatment decisions require clinical judgment and consideration of individual patient factors, including patient preferences, comorbidities, previous drug use, risk factors not captured in the FRAX model (e.g. frailty, falls, vitamin D deficiency, increased bone turnover, interval significant decline in bone density) and possible under or overestimation of fracture risk by FRAX. Additional medical evaluation for secondary cause of low bone mineral density may be appropriate. FUTURE SCAN RECOMMENDATION: People with diagnosed cases of osteoporosis or at high risk for fracture should have regular bone mineral density tests. For patients eligible for Medicare, routine testing is allowed once every 2 years. The testing frequency can be increased to one year for patients who have rapidly progressing disease, those who are receiving or discontinuing medical therapy to restore bone mass, or have additional risk factors.
== END 2023-06-05 12:42 | disposition home or self-care (01) ==
LOC: HO.MAMMO 12:41
PROVIDERS: PCP Physician Assistant; Visit Provider Physician Assistant
DX: Z13.820 Encounter for screening for osteoporosis (principal); Z78.0 Asymptomatic menopausal state
CPT/HCPCS: 77080

== ENCOUNTER 2023-06-14 10:22 | Outpatient (REF) | payer OTHER, SELFPAY ==
--- NOTE | 2023-06-14 10:25 | EMG_ITS ---
Bilateral median, ulnar, motor and sensory studies were performed. Bilateral radial sensory studies were performed and paraspinal muscles were tested with a needle. IMPRESSION: 1. [id number] bilateral median neuropathy across carpal tunnel. 2. Mild bilateral ulnar neuropathy across cubital tunnel. MD PAIGE Julian/NEGRITAL / [id number]
== END 2023-06-14 10:23 | disposition home or self-care (01) ==
LOC: HO.NEURO 10:22
PROVIDERS: PCP Physician Assistant; Visit Provider Physician Assistant
DX: R20.2 Paresthesia of skin (principal)
CPT/HCPCS: 95860; 95886; 95907; 95911

== ENCOUNTER 2023-07-05 11:15 | Outpatient (REF) | payer OTHER, SELFPAY ==
--- NOTE | ~2023-07-05 | XR_ITS ---
EXAMINATION: XR BILATERAL WRISTS CLINICAL INFORMATION: Osteoarthritis of first carpometacarpal joints bilaterally COMPARISON: None TECHNIQUE: 3 views of each wrist. FINDINGS: LEFT WRIST: Advanced degenerative changes in the STT joint. Mild degenerative changes first carpometacarpal joint with joint space narrowing and hypertrophic change. No displaced fracture. RIGHT WRIST: Advanced degenerative changes in the STT joint. Mild degenerative changes first carpometacarpal joint with joint space narrowing and hypertrophic change. No displaced fracture. XR/XR wrist LT min 3V IMPRESSION: 1. Advanced degenerative changes in the bilateral STT joints. 2. Mild degenerative changes bilateral first carpometacarpal joints. 3. No displaced fracture. Recommend follow-up imaging in 10-14 days if fracture is suspected.
--- NOTE | ~2023-07-05 | XR_ITS ---
EXAMINATION: XR BILATERAL WRISTS CLINICAL INFORMATION: Osteoarthritis of first carpometacarpal joints bilaterally COMPARISON: None TECHNIQUE: 3 views of each wrist. FINDINGS: LEFT WRIST: Advanced degenerative changes in the STT joint. Mild degenerative changes first carpometacarpal joint with joint space narrowing and hypertrophic change. No displaced fracture. RIGHT WRIST: Advanced degenerative changes in the STT joint. Mild degenerative changes first carpometacarpal joint with joint space narrowing and hypertrophic change. No displaced fracture. XR/XR wrist RT min 3V IMPRESSION: 1. Advanced degenerative changes in the bilateral STT joints. 2. Mild degenerative changes bilateral first carpometacarpal joints. 3. No displaced fracture. Recommend follow-up imaging in 10-14 days if fracture is suspected.
== END 2023-07-05 11:16 | disposition home or self-care (01) ==
LOC: HO.HOSX 11:15
PROVIDERS: PCP Physician Assistant; Visit Provider Physical Medicine & Rehabilitation
DX: M18.9 Osteoarthritis of first carpometacarpal joint, unspecified (principal); G56.03 Carpal tunnel syndrome, bilateral upper limbs; G56.20 Lesion of ulnar nerve, unspecified upper limb; M65.4 Radial styloid tenosynovitis [de Quervain]
CPT/HCPCS: 73110; 99202

== ENCOUNTER 2023-07-05 11:15 | Outpatient (AMB) | payer OTHER, SELFPAY ==
[2023-07-05 11:20] VITALS: BMI 22.3
--- NOTE | 2023-07-05 11:20 | MHC.OFFVIS ---
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 States she is having numbness and tingling that has worsen in the last 5 years. Reports it increases in the night time, and comes and goes thought out the day. Denies any prior treatment. EMG done. Patient would like to discuss surgery today. Allergies famotidine [From Pepcid] Allergy (Severe, Verified 07/05/23 11:29) IV PEPCID-RESP ARREST bee pollen [BEE STINGS] Allergy (Unknown, Verified 07/05/23 11:29) ANAPHYLAXIS cat dander [CATS] Allergy (Unknown, Verified 07/05/23 11:29) UNKNOWN codeine [CODEINE] Allergy (Unknown, Verified 07/05/23 11:29) STOMACH UPSET NSAIDS (Non-Steroidal Anti-Inflamma [NSAIDS (NON-STEROIDAL ANTI-INFLAMMA] Allergy (Unknown, Verified 07/05/23 11:29) STOMACH ULCERS strawberry [STRAWBERRY] Allergy (Unknown, Verified 07/05/23 11:29) HIVESD Antihistamines - Alkylamine Adverse Reaction (Mild, Verified 07/05/23 11:29) Agitated ibuprofen Adverse Reaction (Unknown, Verified 07/05/23 11:29) ulcer HAYFEVER Allergy (Unknown, Uncoded 07/05/23 11:29) UNKNOWN Medication List - Last Reconciled 07/05/23 by Mariam Vilchis MD albuterol sulfate 90 mcg/actuation 2 puffs inhalation Q4-6H PRN alendronate (Fosamax) 70 mg PO QWEEK 12 weeks calcium carbonate (Oyster Shell Calcium 500) 500 mg PO BID 90 days cholecalciferol (vitamin D3) 25 mcg PO DAILY 90 days cyclobenzaprine 10 mg PO BEDTIME 90 days diphenhydramine HCl (Benadryl) 25 mg PO TID PRN lorazepam 0.5 mg PO BID PRN 30 days pantoprazole (Protonix) 40 mg PO DAILY ropinirole 3 mg PO QPM 90 days tramadol 50 mg PO BID-TID PRN 3 days valacyclovir (Valtrex) 1,000 mg PO Q8H 7 days zolpidem 5 mg PO BEDTIME 90 days HPI HPI Comments History of Present Illness Details History of fibromyalgia, migraine headaches, PTSD, Parkinson's disease (does not follow Neurology, diagnosed by Dr. Morales PCP?), Raynaud's, and restless leg syndrome. Chronic pain on base of both thumbs, fingers painful/numbness. Not so much the pinky. Elbow pain. Chronic neck and back pain. Dropping things. Treatment done so far: Does not take anything. Can't take NSAIDS due to ulcers. therapy - none no brace at all injection - none surgery - none [facility] Medical History (Updated 07/05/23 @ 11:42 by Mariam Vilchis MD) Adhesion of intestine Asthma Colitis History of anxiety History of depression History of fibromyalgia Hx of migraine headaches Maxillary fracture Nicotine dependence, cigarettes, uncomplicated Osteopenia Parkinson disease PTSD (post-traumatic stress disorder) Restless leg syndrome Ulnar neuropathy at elbow Surgical History History of abdominal surgery History of section History of colonoscopy History of endoscopy History of loop electrical excision procedure (LEEP) History of partial colectomy History of tubal ligation Family History Mother Cervical cancer Ovarian cancer Colon cancer Sister Breast cancer Family/Other Mental health disorder Substance use disorder Social History (Updated 07/05/23 @ 11:29 by Geri Hernandez [facility]) [facility] Alcohol intake: current Alcohol intake frequency: a few times a week Alcohol type: beer Patient Tobacco Use Status: Current everyday Tobacco user Tobacco use type: Cigarette Cigarettes Per Day: 10 e-Cigarette/Vaping Use: Never Used Second Hand Smoke Exposure: No service: Yes Current occupational status: disabled 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 MSK: Inspection reveals appropriate head and neck positioning. No pain with palpation over the neck musculature. Cervical ROM was full. Spurling's sign negative. Bilateral shoulder ROM WNL. No ligamentous laxity or crepitance. No increased effusion. Hawkin's test is negative. No joint effusion noted. No deformity noted. No intrinsic hand weakness noted. No atrophy noted. Geri test positive bilateral of. Carpal compression test positive bilateral. Tinel sign positive bilateral wrist and elbow. Tender on CMC joint, bilateral. Strength is 5/5 in all muscle groups tested. No increased tone noted. Neurological: Neurologic examination of the upper and lower extremities was nonfocal with intact sensation, muscle stretch reflexes and without focal motor deficits . Villela?s negative bilaterally. No tremors noted. Gait is non-antalgic without loss of balance. Results Reviewed Results Reviewed: Independently reviewed: Recent thoracic x-ray - No fracture seen XR/XR thoracic spine 2V 04/03/2023 IMPRESSION: No significant thoracic spine abnormality appreciated. EMG done by Dr. Becerra 06/14/2023 showed bilateral moderate Carpal Tunnel Syndrome and bilateral ulnar neuropathy at the elbow. History of Raynaud's. Seen by Dr. Mata 01/02/2023. Also reviewed notes from PCP. Assessment & Plan Assessment & Plan (1) Bilateral carpal tunnel syndrome: Code(s): G56.03 - Carpal tunnel syndrome, bilateral upper limbs (2) Ulnar neuropathy at elbow: Code(s): G56.20 - Lesion of ulnar nerve, unspecified upper limb (3) De Quervain's tenosynovitis, bilateral: Code(s): M65.4 - Radial styloid tenosynovitis [de Quervain] (4) CMC arthritis, thumb, degenerative: Code(s): M18.9 - Osteoarthritis of first carpometacarpal joint, unspecified Plan EMG already showed bilateral Carpal Tunnel Syndrome moderate and bilateral ulnar neuropathy at the elbow. Her symptoms are more consistent with carpal tunnel rather than ulnar neuropathy. She does have signs of de Quervain tenosynovitis as well. She is considering surgery for Carpal Tunnel Syndrome. Referring to Dr. Martinez. In the meantime, trial thumb spica splints during the day. Wrist splints at night. Since she is seeing a hand surgeon and she has tenderness over CMC joints, we will do wrist x-rays today. Assessment and plan discussed with patent, and patient was agreeable. All questions were answered thoroughly. Orders: Orders XR hand LT min 3V Today M18.9 - Osteoarthritis of first carpometacarpal joint, unspecified XR wrist RT min 3V Today M18.9 - Osteoarthritis of first carpometacarpal joint, unspecified Referrals Orthopedics Referral G56.03 - Carpal tunnel syndrome, bilateral upper limbs, G56.20 - Lesion of ulnar nerve, unspecified upper limb Coding Level of Care Code New Pt Level 4 (08527) Diagnoses Bilateral carpal tunnel syndrome G56.03 Ulnar neuropathy at elbow G56.20 De Quervain's tenosynovitis, bilateral M65.4 CMC arthritis, thumb, degenerative M18.9
== END 2023-07-05 12:15 | disposition home or self-care (01) ==
PROVIDERS: PCP Physician Assistant; Visit Provider Physical Medicine & Rehabilitation
DX: G56.03 Carpal tunnel syndrome, bilateral upper limbs (principal); G56.21 Lesion of ulnar nerve, right upper limb; G56.22 Lesion of ulnar nerve, left upper limb; M65.4 Radial styloid tenosynovitis [de Quervain]; M18.9 Osteoarthritis of first carpometacarpal joint, unspecified
CPT/HCPCS: 99204

== ENCOUNTER 2023-07-06 13:22 | Outpatient (AMB) | payer OTHER, SELFPAY ==
--- NOTE | 2023-07-06 10:23 | MHC.OFFVIS ---
Intake Intake Visit Reasons: LDCT SD Allergies famotidine [From Pepcid] Allergy (Severe, Verified 07/05/23 11:29) IV PEPCID-RESP ARREST bee pollen [BEE STINGS] Allergy (Unknown, Verified 07/05/23 11:29) ANAPHYLAXIS cat dander [CATS] Allergy (Unknown, Verified 07/05/23 11:29) UNKNOWN codeine [CODEINE] Allergy (Unknown, Verified 07/05/23 11:29) STOMACH UPSET NSAIDS (Non-Steroidal Anti-Inflamma [NSAIDS (NON-STEROIDAL ANTI-INFLAMMA] Allergy (Unknown, Verified 07/05/23 11:29) STOMACH ULCERS strawberry [STRAWBERRY] Allergy (Unknown, Verified 07/05/23 11:29) HIVESD Antihistamines - Alkylamine Adverse Reaction (Mild, Verified 07/05/23 11:29) Agitated ibuprofen Adverse Reaction (Unknown, Verified 07/05/23 11:29) ulcer HAYFEVER Allergy (Unknown, Uncoded 07/05/23 11:29) UNKNOWN HPI LDCT SD HPI Details Initial visit for this 58yo smoker with a 30PYH. Patient has been smoking since age 14 for 44 years at 1/2-1ppd. Now at 1/4-1/2ppd. . Denies marijuana use. Denies second hand smoke exposure. Denies exposure to chemicals or substances like asbestos. . Denies known family history of lung cancer. Denies personal history of cancers. Denies chest CT in last year. . Denies recent travel outside the [place]. Denies recent respiratory illness or recent hospitalization for respiratory issues. Denies testing positive for COVID. Admits receiving COVID Vaccine. x 2. . Denies fever, chills, new/worsening cough, hemoptysis, hoarseness or dysphagia. Denies significant chest pain, significant dyspnea or unintentional weight loss. Patient Lung Cancer Screening Questionnaire reviewed with patient by provider. . Shared Decision Making Completed. Patient meets criteria. Discussed in detail with patient, the risk vs benefit of LDCT screening. Patient consents to proceed with scan. Discussed smoking cessation. [facility] Medical History (Updated 07/06/23 @ 13:29 by Cori Fallon PA-C) Adhesion of intestine Asthma Colitis History of anxiety History of depression History of fibromyalgia Hx of migraine headaches Maxillary fracture Nicotine dependence, cigarettes, uncomplicated Osteopenia Parkinson disease PTSD (post-traumatic stress disorder) Restless leg syndrome Ulnar neuropathy at elbow Surgical History (Updated 07/06/23 @ 13:40 by Cori Fallon PA-C) History of abdominal surgery History of section History of colonoscopy History of endoscopy History of loop electrical excision procedure (LEEP) History of partial colectomy History of tubal ligation Family History Mother Cervical cancer Ovarian cancer Colon cancer Sister Breast cancer Family/Other Mental health disorder Substance use disorder Social History (Updated 07/06/23 @ 13:29 by Cori Fallon PA-C) Housing: Condominium Alcohol intake: current Alcohol intake frequency: a few times a week Alcohol type: beer Patient Tobacco Use Status: Current everyday Tobacco user Tobacco use type: Cigarette Cigarettes Per Day: 10 Years Smoked: (onset 14yo, 1/2-1ppd x 44yrs, now 1/-1/2ppd - 30pyh) e-Cigarette/Vaping Use: Never Used Second Hand Smoke Exposure: No service: Yes Current occupational status: disabled 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 - Patient meets criteria for LDCT for lung cancer screening purposes and is asymptomatic. - Smoking cessation counseling offered. Patients can always call [phone]. - Will arrange for a LDCT scan of the chest for screening purposes at [facility]. - Risks, benefits, and alternatives were discussed in detail and the patient agrees to proceed. - Risks discussed include but are not limited to: radiation exposure, anxiety during testing and while awaiting results, false negatives, false positives and possibility of additional intervention such as further imaging or surgical procedures for benign disease. - Benefits are obviously detection of lung cancer at an early stage which can lead to improved outcomes. - Discussed the importance of screening program compliance with adherence to yearly LDCT scan as scheduled - or sooner interval scans for personalized screening regimen. - Discussed follow up plan. Our office will send a letter discussing results and if needed set up phone call and office visit based on CT findings. - Patient educated on results categorization and the management decisions for suspicious findings potentially found on the screening LDCT scan. Any patient with a Lung RADS score of 3 or 4 will be reviewed by a multidisciplinary team at [facility] to form a plan of action in regards to scan findings. - If further work up is warranted for a suspicious lung finding this will be followed by the Lung Cancer Screening program in conjunction with the Thoracic Surgery Department at [facility]. - A copy of the office note and LDCT will be sent to the patient's PCP - as well as documentation on any associated further plans of care. - Incidental findings on LDCT are the PCP's responsibility. These findings are indicated with an S finding on the LDCT Assessment. A note discussing the findings will be sent to the PCP who is then responsible for further management. - All questions answered.? Coding Level of Care Code Lung Cancer Screening G0296 Diagnoses Nicotine dependence, cigarettes, uncomplicated F17.210
== END 2023-07-06 14:03 | disposition home or self-care (01) ==
PROVIDERS: PCP Physician Assistant; Visit Provider Physician Assistant Medical
DX: F17.210 Nicotine dependence, cigarettes, uncomplicated (principal)
CPT/HCPCS: G0296

== ENCOUNTER 2023-07-06 13:41 | Outpatient (REF) | payer OTHER, SELFPAY ==
--- NOTE | ~2023-07-06 | CT_ITS ---
EXAMINATION: CT CHEST SCREENING CLINICAL INFORMATION: Current smoker. 45 pack year history. COMPARISON: Previous chest x-rays most recent February 2023 TECHNIQUE: Multidetector volumetric CT imaging of the chest is performed without contrast using low dose technique. Additional 2D coronal and sagittal reformatted images and axial 3D maximum intensity projection (MIP) images are generated on the CT workstation. This CT examination was performed using dose optimization techniques as appropriate, variously including the following: *Automated exposure control *Adjustment of mA and/or kV according to patient size (this includes techniques or standardized protocols for targeted exams where dose is matched to indication/reason for exam; i.e. extremities or head) *Use of iterative reconstruction technique DLP: 41 mGy-cm FINDINGS: LUNGS: There is paraseptal emphysema. There is biapical pleural and parenchymal scarring. Is a deeper 5 mm right upper lobe nodule axial image 103 series 5 probably related to pleural and parenchymal scarring. There is linear scarring or subsegmental atelectasis at the lung bases. No endobronchial or endotracheal lesion. There is a 3 mm right upper lobe nodule axial image 83 series 5. There is a MEDIASTINUM: The mediastinum is normal. CORONARY ARTERY CALCIFICATION: None visualized on this study. PLEURA: There is no pleural effusion. No pleural mass or thickening. AXILLA: No lymphadenopathy. UPPER ABDOMEN: Unremarkable OSSEOUS STRUCTURES: Multiple old or healing right lateral rib fractures. CT/CT lung screening IMPRESSION: Emphysema. Biapical pleural and parenchymal scarring. Small right upper lobe nodule. ASSESSMENT: Lung-RADS category 2: Benign RECOMMENDATION: Annual low-dose chest CT follow-up recommended
== END 2023-07-06 13:42 | disposition home or self-care (01) ==
LOC: HO.CT 13:41
PROVIDERS: PCP Physician Assistant; Visit Provider Physician Assistant Medical
DX: Z12.2 Encounter for screening for malignant neoplasm of respiratory organs (principal); F17.210 Nicotine dependence, cigarettes, uncomplicated
CPT/HCPCS: 71271; G0296

== ENCOUNTER 2023-08-21 08:31 | Outpatient (AMB) | payer OTHER, SELFPAY ==
--- NOTE | 2023-08-21 08:41 | MHC.OFFVIS ---
Intake Intake Visit Reasons: OV- Rt wrist CTR discuss sx Intake Note: Kalyani 58 yr old right hand dominant female who presents today for bilateral hand numbness and tingling. States she is having numbness and tingling that has worsen in the last 5 years. Both hands are as bad Seen with Dr. Eid who advise patient to be further evaluated with DR. Martinez for CTS. EMG done. Patient would like to discuss surgery today. Also states she is has pain in bilateral thumbs due to to her O.A. Allergies famotidine [From Pepcid] Allergy (Severe, Verified 08/21/23 08:48) IV PEPCID-RESP ARREST bee pollen [BEE STINGS] Allergy (Unknown, Verified 08/21/23 08:48) ANAPHYLAXIS cat dander [CATS] Allergy (Unknown, Verified 08/21/23 08:48) UNKNOWN codeine [CODEINE] Allergy (Unknown, Verified 08/21/23 08:48) STOMACH UPSET NSAIDS (Non-Steroidal Anti-Inflamma [NSAIDS (NON-STEROIDAL ANTI-INFLAMMA] Allergy (Unknown, Verified 08/21/23 08:48) STOMACH ULCERS strawberry [STRAWBERRY] Allergy (Unknown, Verified 08/21/23 08:48) HIVESD Antihistamines - Alkylamine Adverse Reaction (Mild, Verified 08/21/23 08:48) Agitated ibuprofen Adverse Reaction (Unknown, Verified 08/21/23 08:48) ulcer HAYFEVER Allergy (Unknown, Uncoded 08/21/23 08:48) UNKNOWN HPI OV- Rt wrist CTR discuss sx HPI Details Kalyani is a 58 year old right hand dominant woman here to discuss her bilateral carpal tunnel syndrome. 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 She complains of numbness in the median nerve distribution of her hands, She says her hands are about he same but recently her left hand has been more bothersome. She says her fingers are numb and tingling all the time . She denies any small finger numbness bilaterally. She also complains of radial-sided wrist pain and pain at the base of her thumbs, worse with pinching and gripping activities. She was given bilateral comfort cool splints to wear during the day by Dr. Eid on 07/05/23, and bilateral wrist splints to wear at night for her carpal tunnel syndrome. She says these splints have been helpful for her. She enjoys painting in her free time, which is bothersome for her. She reports dropping objects often. She reports a hx of fibromyalgia, Parkinson's disease (does not follow Neurology), and Raynaud's. She says she is unable to take NSAIDs due to stomach ulcers. She is a smoker and was recently diagnosed with Emphysema. She also complains of a painful lump in her foot and numbness in her toes which she is concerned about. [facility] Medical History (Updated 08/21/23 @ 09:18 by Bradley Fajardo) Ulnar neuropathy at elbow Osteopenia Nicotine dependence, cigarettes, uncomplicated Maxillary fracture Colitis PTSD (post-traumatic stress disorder) History of depression History of anxiety History of fibromyalgia Asthma Hx of migraine headaches Parkinson disease Restless leg syndrome Adhesion of intestine Surgical History (Updated 07/06/23 @ 13:40 by Cori Fallon PA-C) History of endoscopy History of colonoscopy History of abdominal surgery History of tubal ligation History of section History of partial colectomy History of loop electrical excision procedure (LEEP) Family History Mother Cervical cancer Ovarian cancer Colon cancer Sister Breast cancer Family/Other Mental health disorder Substance use disorder Social History (Reviewed 08/21/23 @ 08:48 by Geri Hernandez [facility]) Housing: Condominium Alcohol intake: current Alcohol intake frequency: a few times a week Alcohol type: beer Patient Tobacco Use Status: Current everyday Tobacco user Tobacco use type: Cigarette Cigarettes Per Day: 10 Years Smoked: (onset 14yo, 1/2-1ppd x 44yrs, now 1/4-1/2ppd - 30pyh) e-Cigarette/Vaping Use: Never Used Second Hand Smoke Exposure: No service: Yes Current occupational status: disabled 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 Cognitive needs: No Hearing needs: No Vision needs: Yes Review of Systems Const All systems reviewed & are unremarkable except as noted in HPI and below Physical Exam Const General: cooperative, healthy appearing and no acute distress Orientation/consciousness: patient oriented x3 HEENT Head: Yes normocephalic and Yes atraumatic Eyes EOM: EOMs intact bilaterally Resp Effort & Inspection: normal respiratory effort and able to speak in complete sentences Cardio Jugular venous distension: no JVD Skin General skin exam: turgor normal Rashes: no rashes Neuro General: patient oriented x3 Extrem Other: Evaluation of Bilateral Upper Extremity: The patient is alert, oriented, and in no acute distress Neuro: Dense numbness in the median nerve distribution bilaterally. Normal sensation in the ulnar nerve distribution bilaterally No thenar or intrinsic wasting Good APB muscle belly firing and good finger cross Vascular: Cap refill brisk ROM: She can make a fist and extend all her digits Skin: No lacerations or abrasions. General: No Ecchymosis. No Erythema or evidence of infection. Only mildly tender over the STT joints bilaterally Tender over the 1st dorsal compartment bilaterally However, Negative Geri tests bilaterally Please note: She had an approximately 8-10 mm diameter mass over the volar radial aspect of her left wrist. This may be consistent with a small left volar wrist ganglion, but when applying some pressure during the exam this went away . Nerve Conduction Study: IMPRESSION: 1. [id number] bilateral median neuropathy across carpal tunnel. 2. Mild bilateral ulnar neuropathy across cubital tunnel. Rodo Becerra MD 06/14/2023 Radiographs: 3 views of the bilateral wrists from 07/05/23 were reviewed by me today in clinic. They show no fractures or dislocations. There is bilateral STT osteoarthritis with joint space narrowing, and only minimal osteoarthritic changes in the basal joint bilaterally. Psych Appearance: grossly normal Affect: normal affect Attitude: cooperative Assessment & Plan Assessment & Plan (1) Bilateral carpal tunnel syndrome: Code(s): G56.03 - Carpal tunnel syndrome, bilateral upper limbs (2) Cubital tunnel syndrome, bilateral: Code(s): G56.23 - Lesion of ulnar nerve, bilateral upper limbs (3) Osteoarthritis of thumbs, bilateral: Code(s): M18.0 - Bilateral primary osteoarthritis of first carpometacarpal joints (4) Right wrist pain: Code(s): M25.531 - Pain in right wrist Plan Assessment & Plan: 1. Right Carpal tunnel syndrome, mild-moderate With dense numbness 2. Left Carpal tunnel syndrome, mild-moderate With dense numbness I educated her about this condition I discussed operative and non-operative treatment options The patient would like to proceed with surgery The risks and benefits of operative treatment were discussed with the patient and the patient wishes to proceed with surgery. These risks include, but are not limited to risk of damage to blood vessels, nerves, tendons, infection, recurrence, incomplete relief of preoperative symptoms, persistent pain, possible need for further surgery and the risks associated with regional blocks and anesthesia. The plan is to take the patient to the operating room sometime in the next few weeks for the following procedures: 1. Right Carpal tunnel release, under local All of the preoperative paperwork including the consent was filled out today. All the patient's questions were answered. The patient understands that they will be contacted by our physician practice market manager soon to schedule this procedure She denies Diabetes, blood thinners, asthma, heart, lung, kidney issues She is a smoker, I had a long discussion with her about the risks of smoking, as well as her recent lung Emphysema. She will try to work on quitting smoking. We can discuss treatment for her left hand when she has recovered from surgery 3. Bilateral STT joint osteoarthritis I educated her about this condition This will be managed conservatively I recommend bracing & activity modification She will continue to wear her comfort cool braces with daily activities She is to limit or avoid any heavy or repetitive pinching and gripping activities 4. Right radial sided wrist pain Possible De Quervain's Tenosynovitis Tender over the 1st dorsal compartment Negative Geri test I educated her about this condition We will manage this with activity modification and bracing 5. Left Cubital tunnel syndrome, mild Asymptomatic and no complaints today This will be managed conservatively for now 6. Right Cubital tunnel syndrome, mild Asymptomatic and no complaints today This will be managed conservatively for now Please note that greater than 25 minutes was spent with this patient going over the history, evaluating the patient and radiographs, formulating possible treatment options, discussing them with the patient, and documenting the visit. Scribed for Miriam Martinez MD by Bradley Fajardo, medical physiologist, on 08/21/23 at 9:15 AM, EST. Coding Level of Care Code New Pt Level 4 (08375) Diagnoses Bilateral carpal tunnel syndrome G56.03 Cubital tunnel syndrome, bilateral G56.23 Osteoarthritis of thumbs, bilateral M18.0 Right wrist pain M25.531
== END 2023-08-21 09:35 | disposition home or self-care (01) ==
PROVIDERS: PCP Physician Assistant; Visit Provider Orthopaedic Surgery
DX: G56.03 Carpal tunnel syndrome, bilateral upper limbs (principal); G56.23 Lesion of ulnar nerve, bilateral upper limbs; M18.0 Bilateral primary osteoarthritis of first carpometacarpal joints; M25.531 Pain in right wrist
CPT/HCPCS: 99204

== ENCOUNTER → 2023-08-21 08:31 | Outpatient (BNVA) | payer OTHER, SELFPAY | PROVIDERS: PCP Physician Assistant; Visit Provider Orthopaedic Surgery ==

== ENCOUNTER 2023-09-06 12:45 | Day surgery (SDC) | payer OTHER, SELFPAY ==
[2023-09-06 13:12] VITALS: BP 99/61; PULSE 93; RESP 18; TEMP 36.8; O2SAT 95; BMI 22.0
--- NOTE | 2023-09-06 16:01 | MHC.SHP ---
Pre-Procedural Eval Section A Date of Service: 09/06/23 The patient is an INPATIENT: No Changes since office visit: No Cold of Flu in the past 2 weeks, No New Medical Problems, No Changes in Medication and No Patient answered all questions The History & Physical has been completed within 30 days and I have reviewed it.: Yes Section B Chief Complaint: Carpal tunnel syndrome, right upper limb Allergies: Allergies Allergy/AdvReac Type Severity Reaction Status Date / Time famotidine [From Pepcid] Allergy Severe IV Verified 08/21/23 08:48 PEPCID-RESP ARREST bee pollen [BEE STINGS] Allergy Unknown ANAPHYLAXIS Verified 08/21/23 08:48 cat dander [CATS] Allergy Unknown UNKNOWN Verified 08/21/23 08:48 codeine [CODEINE] Allergy Unknown STOMACH Verified 08/21/23 08:48 UPSET NSAIDS (Non-Steroidal Allergy Unknown STOMACH Verified 08/21/23 08:48 Anti-Inflamma ULCERS [NSAIDS (NON-STEROIDAL ANTI-INFLAMMA] strawberry [STRAWBERRY] Allergy Unknown HIVESD Verified 08/21/23 08:48 Antihistamines - Alkylamine AdvReac Mild Agitated Verified 08/21/23 08:48 ibuprofen AdvReac Unknown ulcer Verified 08/21/23 08:48 HAYFEVER Allergy Unknown UNKNOWN Uncoded 08/21/23 08:48 Plan I have reviewed the history and physical and performed a pertinent physical examination on my patient. No changes have occurred unless specified. Time Spent With Patient Time: Total time managing care of this patient today ____ minutes.
--- NOTE | 2023-09-06 16:02 | W.PM.OPN ---
Operative Note Operative Note Date of Service: 09/06/23 Narrative: Preop diagnosis: 1. right Carpal tunnel syndrome Postop diagnosis: same Procedure: 1. right Carpal tunnel release Surgeon: Miriam Martinez MD Anesthesia: local block using 1% lidocaine with epinephrine Findings: Thickened transverse carpal ligament. EBL: Less than 5 mL Specimens: None Complications: None Disposition: Brought to recovery room in stable condition Plan: Follow-up for 10-14 days for wound check and suture removal Indications: The patient is 58 years old, with right carpal tunnel syndrome that has been unresponsive to nonoperative management. The risks and benefits of operative treatment including but not limited to risk of damage to blood vessels, nerves, tendons, infection, persistent pain, persistent symptoms, or possible need for additional surgery were discussed with the patient and the patient wishes to proceed with surgery. Procedure: Once consent was obtained a local block was performed using a combination of 1% lidocaine with epinephrine. The patient was then brought back to the operating suite and placed on the operative table in supine position. The right upper extremity was prepped and draped in a standard surgical fashion. Once assured that we had a good block, a 2.0 cm longitudinal incision was made centered over the carpal tunnel. The incision was made through the skin to the subcutaneous tissues using a #15 blade. Dissection was made down to the level of the transverse carpal ligament with care being taken to protect the palmar cutaneous nerve. Once the transverse carpal ligament was clearly visualized, a longitudinal incision was made in the transverse carpal ligament 1st using a #15 blade, then using tenotomy scissors under direct visualization. Care was taken to look for and protect the motor branch of the median nerve when seen in this area. Once satisfied with our carpal tunnel release the wound was copiously irrigated with normal saline and hemostasis was obtained with a brief period of local pressure. The skin edges were reapproximated with some 5.0 nylon suture material and a sterile dressing was applied. The patient appears to have tolerated the procedure well and with no complications. All digits were well vascularized at the conclusion of the case.
[2023-09-06 17:00] VITALS: BP 115/66; PULSE 85; RESP 20; TEMP 36.4; O2SAT 95
== END 2023-09-06 17:15 | disposition home or self-care (01) ==
PROVIDERS: PCP Physician Assistant; Visit Provider Orthopaedic Surgery
PROC: (CPT 64721; principal; 2023-09-06 14:30)
DX: G56.01 Carpal tunnel syndrome, right upper limb (principal); R20.0 Anesthesia of skin; R20.2 Paresthesia of skin; G20.A1 Parkinson's disease without dyskinesia, without mention of fluctuations; I73.00 Raynaud's syndrome without gangrene; J43.9 Emphysema, unspecified; M85.80 Other specified disorders of bone density and structure, unspecified site; M18.0 Bilateral primary osteoarthritis of first carpometacarpal joints; Z90.49 Acquired absence of other specified parts of digestive tract; F17.210 Nicotine dependence, cigarettes, uncomplicated; Z88.5 Allergy status to narcotic agent; Z88.8 Allergy status to other drugs, medicaments and biological substances; Z98.890 Other specified postprocedural states
CPT/HCPCS: 64721; J0171

== ENCOUNTER → 2023-09-06 12:45 | Outpatient (BNV) | payer OTHER, SELFPAY | PROVIDERS: PCP Physician Assistant; Visit Provider Orthopaedic Surgery | DX: G56.01 Carpal tunnel syndrome, right upper limb (principal) | CPT/HCPCS: 64721 ==

== ENCOUNTER 2024-01-19 12:43 | Emergency (ER) | payer OTHER, SELFPAY ==
--- NOTE | ~2024-01-19 | XR_ITS ---
EXAMINATION: Right knee, right ankle and right foot. CLINICAL INDICATION: Fall, great toe pain. COMPARISON: None. TECHNIQUE: 4 views right knee, 2 views right ankle and 3 views right foot. FINDINGS: Right knee: There is mild reduction in medial and patellofemoral compartment joint space with moderate suprapatellar joint effusion. No acute fracture, loose bodies or bony erosive changes seen. Right ankle: The ankle mortise and subtalar joints are normal. No visible acute fracture, dislocation or subluxation seen. The soft tissues are normal Right foot: Visualized tarsal, metatarsals and the phalanges are intact. No fracture or dislocation seen. The joint spaces are maintained normal. The soft tissues are normal. The ankle mortise and subtalar joint is normal. XR/XR ankle RT 2V IMPRESSION: Mild degenerative changes right knee with moderate suprapatellar joint effusion. No acute fracture or dislocation in right knee. Unremarkable right ankle and right foot exam.
--- NOTE | ~2024-01-19 | XR_ITS ---
EXAMINATION: Right knee, right ankle and right foot. CLINICAL INDICATION: Fall, great toe pain. COMPARISON: None. TECHNIQUE: 4 views right knee, 2 views right ankle and 3 views right foot. FINDINGS: Right knee: There is mild reduction in medial and patellofemoral compartment joint space with moderate suprapatellar joint effusion. No acute fracture, loose bodies or bony erosive changes seen. Right ankle: The ankle mortise and subtalar joints are normal. No visible acute fracture, dislocation or subluxation seen. The soft tissues are normal Right foot: Visualized tarsal, metatarsals and the phalanges are intact. No fracture or dislocation seen. The joint spaces are maintained normal. The soft tissues are normal. The ankle mortise and subtalar joint is normal. XR/XR foot RT min 3V IMPRESSION: Mild degenerative changes right knee with moderate suprapatellar joint effusion. No acute fracture or dislocation in right knee. Unremarkable right ankle and right foot exam.
--- NOTE | ~2024-01-19 | XR_ITS ---
EXAMINATION: Right knee, right ankle and right foot. CLINICAL INDICATION: Fall, great toe pain. COMPARISON: None. TECHNIQUE: 4 views right knee, 2 views right ankle and 3 views right foot. FINDINGS: Right knee: There is mild reduction in medial and patellofemoral compartment joint space with moderate suprapatellar joint effusion. No acute fracture, loose bodies or bony erosive changes seen. Right ankle: The ankle mortise and subtalar joints are normal. No visible acute fracture, dislocation or subluxation seen. The soft tissues are normal Right foot: Visualized tarsal, metatarsals and the phalanges are intact. No fracture or dislocation seen. The joint spaces are maintained normal. The soft tissues are normal. The ankle mortise and subtalar joint is normal. XR/XR knee RT 3V IMPRESSION: Mild degenerative changes right knee with moderate suprapatellar joint effusion. No acute fracture or dislocation in right knee. Unremarkable right ankle and right foot exam.
--- NOTE | 2024-01-19 12:54 | ED.GENADULT ---
HPI - General Adult General Chief complaint: Fall Stated complaint: Fall Time Seen by Provider: 01/19/24 13:51 Source: patient and family Mode of arrival: ambulatory Limitations: no limitations History of Present Illness HPI narrative: 58 yo female here with complaints of right knee, right great toe pain after a fall down the stairs yesterday. No head strike or LOC. No AC therapy use. Related Data Previous Rx's Medication Instructions Recorded ropinirole 3 mg tablet 3 mg PO QPM 90 days #90 tabs 02/06/23 valacyclovir 1 gram tablet 1,000 mg PO Q8H 7 days #21 tabs 05/09/23 (Valtrex) diphenhydramine HCl 25 mg capsule 25 mg PO TID PRN allergic reaction 06/01/23 (Benadryl) #20 caps alendronate 70 mg tablet (Fosamax) 70 mg PO QWEEK 12 weeks #12 tabs 06/18/23 cholecalciferol (vitamin D3) 25 25 mcg PO DAILY 90 days #90 caps 06/18/23 mcg (1,000 unit) capsule lorazepam 0.5 mg tablet 0.5 mg PO BID PRN anxiety 30 days 08/29/23 #60 tabs nicotine (polacrilex) 4 mg gum 4 mg buccal Q2H PRN nicotine 08/29/23 cravings 30 days #110 ea cyclobenzaprine 10 mg tablet 10 mg PO TID 90 days #270 tabs 10/02/23 albuterol sulfate 90 mcg/actuation 2 puff inhalation Q4-6H shortness 10/15/23 aerosol inhaler of breath or wheezing 30 days #8.5 grams azithromycin 250 mg tablet See Rx Instructions PO .COMPLEX #6 11/26/23 tabs benzonatate 200 mg capsule 200 mg PO TID 5 days #15 caps 11/26/23 tramadol 50 mg tablet 50 mg PO BID-TID PRN pain 3 days 12/24/23 #9 tabs fluconazole 150 mg tablet 150 mg PO Q3D 2 doses #2 tabs 12/25/23 zolpidem 5 mg tablet 5 mg PO BEDTIME insomnia 90 days 12/26/23 #90 tabs calcium carbonate 500 mg calcium 500 mg PO BID 90 days #180 tabs 12/28/23 (1,250 mg) tablet (Oyster Shell Calcium 500) fluoxetine 20 mg capsule 20 mg PO DAILY 30 days #30 caps 01/15/24 pantoprazole 40 mg tablet,delayed 40 mg PO DAILY #90 tabs 01/17/24 release (Protonix) Allergies Allergy/AdvReac Type Severity Reaction Status Date / Time famotidine [From Pepcid] Allergy Severe IV Verified 08/21/23 08:48 PEPCID-RESP ARREST bee pollen [BEE STINGS] Allergy Unknown ANAPHYLAXIS Verified 08/21/23 08:48 cat dander [CATS] Allergy Unknown UNKNOWN Verified 08/21/23 08:48 codeine [CODEINE] Allergy Unknown STOMACH Verified 08/21/23 08:48 UPSET NSAIDS (Non-Steroidal Allergy Unknown STOMACH Verified 08/21/23 08:48 Anti-Inflamma ULCERS [NSAIDS (NON-STEROIDAL ANTI-INFLAMMA] strawberry [STRAWBERRY] Allergy Unknown HIVESD Verified 08/21/23 08:48 Antihistamines - Alkylamine AdvReac Mild Agitated Verified 08/21/23 08:48 ibuprofen AdvReac Unknown ulcer Verified 08/21/23 08:48 HAYFEVER Allergy Unknown UNKNOWN Uncoded 08/21/23 08:48 Review of Systems Review of Systems: Yes all other systems are reviewed and are negative Constitutional: Constitutional: Reports no additional constitutional complaints, Denies body ache(s), Denies chills, Denies fever(s), Denies headache(s) and Denies weakness Eyes: Eyes: Reports no additional eye complaints and Denies change in vision ENT: Reports system reviewed and no additional complaints, except as documented, Denies dizziness, Denies headache(s), Denies nasal congestion, Denies nasal discharge and Denies neck pain Cardiovascular: Cardiovascular: Reports no additional cardiovascular complaints, Denies chest pain, Denies leg edema and Denies dyspnea Respiratory: Respiratory: Reports no additional respiratory complaints, Denies cough and Denies dyspnea Gastrointestinal: Gastrointestinal: Reports no additional gastrointestinal complaints, Denies abdominal pain, Denies diarrhea, Denies nausea and Denies vomiting Genitourinary: Genitourinary: Reports no additional female genitourinary complaints and Denies urinary incontinence Musculoskeletal: Musculoskeletal: Reports no additional musculoskeletal complaints, Denies back pain, Reports arthralgias, Reports joint swelling, Denies limited range of motion, Denies neck pain, Denies numbness and Denies tingling Integumentary/Breasts: Skin/Breast: Reports system reviewed and no additional complaints, except as docu and Denies rash Neurologic: Reports system reviewed and no additional complaints, except as documented, Denies Abnormal speech present, Denies dizziness, Denies headache(s), Denies numbness, Denies tingling and Denies weakness PMFSH Past Medical History Attestation statement: The following information was validated with the patient. Source: old records reviewed and nursing notes reviewed Medical History Ulnar neuropathy at elbow Osteopenia Nicotine dependence, cigarettes, uncomplicated Maxillary fracture Colitis PTSD (post-traumatic stress disorder) History of depression History of anxiety History of fibromyalgia Asthma Hx of migraine headaches Parkinson disease Restless leg syndrome Adhesion of intestine Surgical History History of endoscopy History of colonoscopy History of abdominal surgery History of tubal ligation History of section History of partial colectomy History of loop electrical excision procedure (LEEP) Family History Family History Mother Cervical cancer Ovarian cancer Colon cancer Sister Breast cancer Family/Other Mental health disorder Substance use disorder Social History Social History Housing: Condominium Alcohol intake: current Alcohol intake frequency: a few times a week Alcohol type: beer Patient Tobacco Use Status: Current everyday Tobacco user Tobacco use type: Cigarette Cigarettes Per Day: 10 Years Smoked: (onset 14yo, 1/2-1ppd x 44yrs, now 1/4-1/2ppd - 30pyh) e-Cigarette/Vaping Use: Never Used Second Hand Smoke Exposure: No Advance Directives: No Advance Directives Information Provided: No service: Yes Current occupational status: disabled 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 Cognitive needs: No Hearing needs: No Vision needs: Yes Physical Exam ED Vital Signs: Vital Signs - 24 hr 01/19/24 12:56 Temperature 97.5 F Pulse Rate 92 Respiratory Rate 18 Blood Pressure 103/66 Pulse Oximetry 97 Oxygen Delivery Method Room Air BMI result Body Mass Index 24.3 Const General: cooperative, healthy appearing, comfortable and no acute distress Orientation/consciousness: patient oriented x3 Limitations: no limitations HENMT Head: Yes normal to inspection Ears: hearing grossly normal bilaterally General nose exam: Normal external nose present Face and sinus: Yes normal facial exam Mouth: Normal oral and palatal mucosa present Throat: Yes posterior oropharynx normal Eyes General: appearance normal, both eyes and all related structures Pupils: Equal, round and reactive pupils present Neck Neck: Yes normal visual inspection Chest Chest palpation & inspection: normal inspection of the chest Resp Effort & Inspection: normal respiratory effort Auscultation: clear to auscultation bilaterally Cardio Rate: regular rate Rhythm: regular rhythm Peripheral pulses: Peripheral pulses 2+ throughout GI Inspection: Yes normal to inspection Palpation (GI): Soft to palpation and nontender Auscultation: normal bowel sounds Back/Spine/Pelvis Thoracic/Lumbar Spine: thoracic and lumbar spine normal to inspection Skin General skin exam: no rashes or lesions noted Neuro General: patient oriented x3, no focal motor deficits and normal sensation to monofilament Cranial nerves: Yes Equal, round and reactive pupils present Cognition (Neuro): normal cognition Speech: No Abnormal speech present Gait exam (Neuro): Normal gait present Motor exam (neuro): 5/5 motor strength present throughout Extrem Other: There is swelling to the right knee Active flexion/extension intact 2+ DP/PT pulses distally Normal distal sensation FROM of right ankle/foot/toes Course Course Course Narrative: This is a rapid medical exam: Additional HPI, ROS, PE not included below will be deferred to primary provider. Patient is a 58-year-old female with history of emphysema, osteopenia, asthma, SYLVIA presenting to the emergency department with complaint of right foot/ankle pain, right great toe, and right knee pain after a fall down basement stairs last night. Slipped while carrying laundry last night, attempted to catch herself, but fell down about 8 steps. Denies head strike or loss of consciousness. Not anticoagulated. Plan: xrays Procedures Orthopedic Splinting/Casting Injury #1: Side: right Lower Extremity Injury Location: knee Lower Extremity Immobilizer: Wali wrap Other Orthopedic Equipment: crutches Medical Decision Making Medical Decision Making MDM Narrative: 58 yo female here with complaints of right knee, right great toe pain after a fall down the stairs yesterday. No head strike or LOC. No AC therapy use. There is swelling to the right knee Active flexion/extension intact 2+ DP/PT pulses distally Normal distal sensation FROM of right ankle/foot/toes Will check x-rays Differential Diagnosis Differential Diagnoses: The differential diagnosis associated with the presentation includes contusion, fracture low suspicion for vascular injury, dislocation, complex fracture Admission/Observation Consideration of admission/observation: Escalation of care including admission/observation considered low suspicion for vascular injury, dislocation, complex fracture warranting advanced imaging Independent Interpretation I performed an independent interpretation of an: Plain X-Ray Interpretation: I independently reviewed the x-ray and agree with the rad report Radiology Impression Discussion of test interpretation with radiology: I have reviewed the radiologist's reading. Radiologist Impression: Launch?Image [address] [address] XRay Report Signed Patient: Kalyani Adams MR#: [id number] : 1965 Acct:[id number] Age/Sex: 58 / F ADM Date: 01/19/24 Loc: .ED Attending Dr: Ordering Physician: Rosa Jimenez NP Date of Service: 01/19/24 Procedure(s): XR knee RT 3V Accession Number(s): [id number] cc: Mau Solis PA-C; Rosa Jimenez NP~ EXAMINATION: Right knee, right ankle and right foot. CLINICAL INDICATION: Fall, great toe pain. COMPARISON: None. TECHNIQUE: 4 views right knee, 2 views right ankle and 3 views right foot. FINDINGS: Right knee: There is mild reduction in medial and patellofemoral compartment joint space with moderate suprapatellar joint effusion. No acute fracture, loose bodies or bony erosive changes seen. Right ankle: The ankle mortise and subtalar joints are normal. No visible acute fracture, dislocation or subluxation seen. The soft tissues are normal Right foot: Visualized tarsal, metatarsals and the phalanges are intact. No fracture or dislocation seen. The joint spaces are maintained normal. The soft tissues are normal. The ankle mortise and subtalar joint is normal. XR/XR knee RT 3V IMPRESSION: Mild degenerative changes right knee with moderate suprapatellar joint effusion. No acute fracture or dislocation in right knee. Unremarkable right ankle and right foot exam. Independent Historian Clinical information obtained from an independent historian. History obtained from or confirmed by: Friend Tests considered The following testing was considered but not selected: low suspicion for vascular injury, dislocation, complex fracture warranting advanced imaging Prescription Management I considered prescription management with: Pain Medication Discharge Plan Discharge Clinical Impression: Contusion of knee, right Patient Disposition: Home, Self-Care Instructions: Crutch Instructions (ED), Contusion in Adults (ED), R.I.C.E. Treatment (ED) Additional Instructions: rest, ice, use the compression bandage Use the crutches for ambulation Take Motrin or Tylenol if able as needed for any pain Follow-up with primary care doctor in 5-7 days for any continued symptoms Prescriptions: No Action alendronate [Fosamax] 70 mg tablet 70 mg PO QWEEK 84 Days Qty: 12 1RF cholecalciferol (vitamin D3) 25 mcg (1,000 unit) capsule 25 mcg PO DAILY 90 Days Qty: 90 1RF nicotine (polacrilex) 4 mg gum 4 mg buccal Q2H PRN (Reason: nicotine cravings) 30 Days Qty: 110 2RF lorazepam 0.5 mg tablet 0.5 mg PO BID PRN (Reason: anxiety) 30 Days Qty: 60 3RF cyclobenzaprine 10 mg tablet 10 mg PO TID 90 Days Qty: 270 1RF albuterol sulfate 90 mcg/actuation HFA aerosol inhaler 2 puff inhalation Q4-6H 30 Days Qty: 8.5 2RF benzonatate 200 mg capsule 200 mg PO TID 5 Days Qty: 15 0RF azithromycin 250 mg tablet See Rx Instructions PO .COMPLEX Qty: 6 0RF Rx Instructions: For 250 mg dose pack: take 500 mg today (day 1), then 250 mg for 4 days (days 2-5) PO tramadol 50 mg tablet 50 mg PO BID-TID PRN (Reason: pain ) 3 Days Qty: 9 0RF Rx Instructions: Take as needed only for severe pain (scale of 7-10) fluconazole 150 mg tablet 150 mg PO Q3D Qty: 2 0RF zolpidem 5 mg tablet 5 mg PO BEDTIME 90 Days Qty: 90 1RF calcium carbonate [Oyster Shell Calcium 500] 500 mg calcium (1,250 mg) tablet 500 mg PO BID 90 Days Qty: 180 1RF fluoxetine 20 mg capsule 20 mg PO DAILY 30 Days Qty: 30 3RF pantoprazole [Protonix] 40 mg tablet,delayed release (DR/EC) 40 mg PO DAILY Qty: 90 2RF diphenhydramine HCl [Benadryl] 25 mg capsule 25 mg PO TID PRN (Reason: allergic reaction) Qty: 20 0RF ropinirole 3 mg tablet 3 mg PO QPM 90 Days Qty: 90 3RF valacyclovir [Valtrex] 1 gram tablet 1,000 mg PO Q8H 7 Days Qty: 21 0RF Referrals: Mau Solis PA-C [Primary Care Provider] - 1 week
[2024-01-19 12:56] VITALS: BP 103/66; PULSE 92; RESP 18; TEMP 36.4; O2SAT 97; BMI 24.3
== END 2024-01-19 15:01 | disposition home or self-care (01) ==
PROVIDERS: Emergency Provider Student in an Organized Health Care Education/Training Program; PCP Physician Assistant
DX: S80.01XA Contusion of right knee, initial encounter (principal); W01.0XXA Fall on same level from slipping, tripping and stumbling without subsequent striking against object, initial encounter; Y93.E2 Activity, laundry; Y92.008 Other place in unspecified non-institutional (private) residence as the place of occurrence of the external cause; Y99.9 Unspecified external cause status; M79.674 Pain in right toe(s); M25.561 Pain in right knee; Z79.899 Other long term (current) drug therapy
CPT/HCPCS: 73562; 73600; 73630; 99282; 99283

== ENCOUNTER 2024-07-17 15:00 | Outpatient (AMB) | payer OTHER, SELFPAY ==
--- NOTE | 2024-07-17 15:03 | MHC.PC.OV ---
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 Accompanied by: Son Allergies famotidine [From Pepcid] Allergy (Severe, Verified 07/17/24 15:17) IV PEPCID-RESP ARREST bee pollen [BEE STINGS] Allergy (Unknown, Verified 07/17/24 15:17) ANAPHYLAXIS cat dander [CATS] Allergy (Unknown, Verified 07/17/24 15:17) UNKNOWN codeine [CODEINE] Allergy (Unknown, Verified 07/17/24 15:17) STOMACH UPSET NSAIDS (Non-Steroidal Anti-Inflamma [NSAIDS (NON-STEROIDAL ANTI-INFLAMMA] Allergy (Unknown, Verified 07/17/24 15:17) STOMACH ULCERS strawberry [STRAWBERRY] Allergy (Unknown, Verified 07/17/24 15:17) HIVESD Antihistamines - Alkylamine Adverse Reaction (Mild, Verified 07/17/24 15:17) Agitated ibuprofen Adverse Reaction (Unknown, Verified 07/17/24 15:17) ulcer HAYFEVER Allergy (Unknown, Uncoded 07/17/24 15:17) UNKNOWN Medication List - Last Reconciled 07/17/24 by Mau Solis PA-C albuterol sulfate 90 mcg/actuation 2 puffs inhalation Q4-6H 30 days alendronate (Fosamax) 70 mg PO QWEEK 12 weeks calcium carbonate (Oyster Shell Calcium 500) 500 mg PO BID 90 days cholecalciferol (vitamin D3) 25 mcg PO DAILY 90 days cyclobenzaprine 10 mg PO TID 90 days diphenhydramine HCl (Benadryl) 25 mg PO TID PRN lorazepam 0.5 mg PO BID PRN 30 days nicotine (polacrilex) 4 mg buccal Q2H PRN 30 days pantoprazole (Protonix) 40 mg PO DAILY ropinirole 3 mg PO QPM 90 days tramadol 50 mg PO BID-TID PRN 3 days valacyclovir (Valtrex) 1,000 mg PO Q8H 7 days zolpidem 5 mg PO BEDTIME 90 days Tobacco use date assessed: 05/09/23 Dental Screening Dental Screen Date: 05/09/23 HPI follow up HPI Details Patient is a 59-year-old female here today for a follow-up visit.? Patient has a past medical history significant for generalized anxiety disorder, insomnia, fibromyalgia, history colitis with bowel resection, asthma, Concern--> patient reports a right foot and hand injury recently in his asking for another script tramadol pain. . Anxiety: Patient does use lorazepam 0.5 mg b.i.d. p.r.n. with decent affect on reducing her anxiety. She still does have quite a bit of stress stress at home taking care of teenage children. .. Tobacco dependency: Unfortunately continues to smoke, has tried nicotine replacement therapy and medications in the past without effective results. Has establish with lung cancer screening program .. Restless leg syndrome:? Patient uses 1.5 mg of ropinirole at night with good effect PFSH Medical History Ulnar neuropathy at elbow Osteopenia Nicotine dependence, cigarettes, uncomplicated Maxillary fracture Colitis PTSD (post-traumatic stress disorder) History of depression History of anxiety History of fibromyalgia Asthma Hx of migraine headaches Parkinson disease Restless leg syndrome Adhesion of intestine Surgical History History of endoscopy History of colonoscopy History of abdominal surgery History of tubal ligation History of section History of partial colectomy History of loop electrical excision procedure (LEEP) Family History Mother Cervical cancer Ovarian cancer Colon cancer Sister Breast cancer Family/Other Mental health disorder Substance use disorder Social History Housing: Condominium Alcohol intake: current Alcohol intake frequency: a few times a week Alcohol type: beer Patient Tobacco Use Status: Current everyday Tobacco user Tobacco use type: Cigarette Cigarettes Per Day: 10 Years Smoked: (onset 14yo, 1/2-1ppd x 44yrs, now 1/4-1/2ppd - 30pyh) e-Cigarette/Vaping Use: Never Used Second Hand Smoke Exposure: No service: Yes Current occupational status: disabled 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 1. Little interest or pleasure in doing things: several days 2. Feeling down, depressed, or hopeless: not at all 3. Trouble falling or staying asleep, or sleeping too much: nearly every day 4. Feeling tired or having little energy: more than half the days 5. Poor appetite or overeating: several days 6. Feeling bad about yourself - or that you are a failure or have let yourself or your family down: several days 7. Trouble concentrating on things, such as reading the newspaper or watching television: several days 8. Moving or speaking so slowly that other people could have noticed. Or the opposite - being so fidgety or restless that you have been moving around a lot more than usual: not at all 9. Thoughts that you would be better off or of hurting yourself in some way: several days Total score: 10 Depression Screening Interpretation: Positive Depression Screening Follow-up: Existing condition and In treatment Depression Screening Done: Yes 71693 - PHQ-9 Billing: Yes Source: Developed by Drs. Lev Samuel, Angela Fuentes, Clinton Egan and colleagues, with an educational keyur from [employer]. Thrive Questionnaire Date Thrive assessed: 07/17/24 I am a: Patient What is your living situation today?: I have a steady place to live Within the past 12 months, did the food you bought not last and you didn't have the money to get more?: Never true Within the past 12 months, did you worry whether your food would run out before you got money to buy more?: Never true Do you have trouble paying for medicines?: No Do you have trouble getting transportation to medical appointments?: No Do you have trouble paying your heating and electricity bill?: No Do you have trouble taking care of your child, family member or friend?: No Do you have trouble with day-to-day activities such as bathing, preparing meals, shopping, managing finances, etc.?: No Are you currently unemployed and looking for a job?: No Are you interested in more education?: No Please select the resources that you would like help with: None Currently or been in a relationship where the following occur: No concerns reported THRIVE Score: 0 AUDIT C Alcohol Use Questionnaire (AUDIT-C) 1. How often do you have a drink containing alcohol?: 2-3 times a week 2. How many drinks containing alcohol do you have on a typical day when you are drinking?: 1 or 2 3. How often do you have six or more drinks on one occasion?: Less than monthly Total Score: 4 SYLVIA-7 AMB Questionnaire SYLVIA-7 Date SYLVIA - 7 assessed: 07/17/24 Feeling nervous, anxious, or on edge: 2 = More than half the days Not being able to stop or control worryin = More than half the days Worrying too much about different things: 2 = More than half the days Trouble relaxin = More than half the days Being so restless that it is hard to sit still: 2 = More than half the days Becoming easily annoyed or irritable: 3 = Nearly every day Feeling afraid as if something awful might happen: 2 = More than half the days Total SYLVIA-7 score (0-4 normal; 5-9 mild; 10-14 moderate; 15-21 severe): 13 Source: Developed by Drs. Lev Samuel, Angela Fuentes, Clinton Egan and colleagues, with an educational keyur from [employer]. SYLVIA-7 Assessment Billing SYLVIA-7 Assessment Tool: SYLVIA-7 Assessment 11272 Review of Systems Const Denies headache(s) Eyes Denies loss of vision ENT Denies vertigo, Denies dizziness, Denies headache(s) and Denies sore throat Card Denies chest pain, Denies leg edema and Denies lightheadedness Resp Denies cough, Denies hemoptysis and Denies wheezing GI Denies abdominal pain, Denies melena, Denies constipation, Denies diarrhea and Denies vomiting Denies urinary frequency, Denies dysuria and Denies urinary urgency Musc Denies arthralgias, Denies joint swelling, Denies numbness and Denies tingling Neuro Denies Abnormal speech present, Denies behavioral changes, Denies vertigo, Denies dizziness, Denies headache(s), Denies loss of vision, Denies memory loss, Denies numbness and Denies tingling Psych Denies anxiety, Denies behavioral changes, Denies depression, Denies memory loss and Denies panic attacks Sam/Lymph Denies easy bleeding and Denies easy bruising Aller/Immun Denies wheezing Physical exam (Primary Care) Vital Signs: Last Vital Signs Pulse 93 07/17/24 15:11 BP 106/64 07/17/24 15:11 Pulse Ox 96 07/17/24 15:11 Oxygen Delivery Method Room Air 07/17/24 15:11 BMI result Body Mass Index 24.3 Tobacco/Smoking Status: Tobacco use Status Tobacco use date assessed 05/09/23 07/17/24 15:03 Patient Tobacco Use Status Current everyday Tobacco 07/17/24 15:03 Tobacco use type Cigarette 07/17/24 15:03 e-Cigarette/Vaping Use Never Used 07/17/24 15:03 Are you ready to quit: No Tobacco cessation counseling provided: Yes Items discussed: Nicotine replacement Relapse Prevention: discussed the importance of a supportive environment, discussed negative mood or depression after quitting, weight gain after smoking is common and discussed dietary, exercise and/or lifestyle changes Number of minutes spent counselin CPT code: 90275 - 4-10 Minutes PHQ-9: PHQ-9 Score PHQ-9: Total score 10 07/21/24 14:34 Depression Screening Interpretation: Positive Depression Screening Follow-up: Existing condition and In treatment Thrive Assessment: Date of Thrive Assessment Date Thrive assessed 07/17/24 07/17/24 15:18 Currently or been in a relationship where the following occur: No concerns reported Const General: healthy appearing, no acute distress, alert and awake Nutritional Appearance: well nourished Orientation/consciousness: oriented to person, oriented to place and oriented to time HENMT Ears: TM's normal bilaterally General nose exam: Normal nasal mucous membranes and turbinates present Eyes Conjunctivae: conjunctivae normal Sclerae: sclerae normal Pupils: Equal, round and reactive pupils present Neck Neck: Yes no lymphadenopathy and Yes no JVD Thyroid: Thyroid normal Carotids: no bruits Resp Effort & Inspection: normal respiratory effort and not tachypneic Auscultation: no crackles, no rales, no rhonchi and no wheezes Cardio Rate: regular rate Rhythm: regular rhythm Heart sounds: no murmurs and normal S1 and S2 GI Palpation (GI): Soft to palpation, nontender, no hepatomegaly and no splenomegaly Auscultation: normal bowel sounds Skin General skin exam: no rashes or lesions noted and dry skin Neuro General: oriented to person, oriented to place and oriented to time Cranial nerves: Yes Equal, round and reactive pupils present Speech: No Abnormal speech present Gait exam (Neuro): Normal gait present Motor exam (neuro): no tremor noted Extrem Right upper extremity: full ROM Left upper extremity: full ROM Right lower extremity: full ROM; no edema Left lower extremity: full ROM; no edema Psych Mental Status: mental status grossly normal Speech and movement: Normal speech and movement present Affect: normal affect Attitude: cooperative Thought process: Normal thought process present Assessment and Plan Assessment & Plan (1) Asthma: Code(s): J45.909 - Unspecified asthma, uncomplicated Qualifiers: Asthma complication type: uncomplicated Asthma persistence: intermittent Asthma severity: mild Qualified Code(s): J45.20 - Mild intermittent asthma, uncomplicated Plan: Patient reports asthma has been stable with current use albuterol inhaler. Unfortunately still smoking No nighttime awakenings with asthma symptoms. (2) Nicotine dependence, cigarettes, uncomplicated: Comment: (current smoker - onset 14yo, 1/2-1ppd x 44yrs, now 11/15-1/2ppd - 30pyh) Code(s): F17.210 - Nicotine dependence, cigarettes, uncomplicated Plan: Unfortunately continues to smoke and does understand she needs to quit. She will like to work on reducing her smoking on her own. (3) SYLVIA (generalized anxiety disorder): Code(s): F41.1 - Generalized anxiety disorder Plan: Patient continues to suffer with generalized anxiety disorder. Does use lorazepam 0.5 mg b.i.d. which she has been able to reduce from t.i.d. dosing. Continues to use zolpidem on a nightly basis for sleep (4) Borderline high cholesterol: Code(s): E78.9 - Disorder of lipoprotein metabolism, unspecified Plan: Patient's most recent fasting lipid panel showing borderline high total cholesterol. She will continue working on lifestyle modifications to reduce her high cholesterol foods in her diet. (5) Screening for diabetes mellitus (DM): Code(s): Z13.1 - Encounter for screening for diabetes mellitus (6) Colon cancer screening: Code(s): Z12.11 - Encounter for screening for malignant neoplasm of colon Plan: Needs repeat colonoscopy (7) Right foot injury: Code(s): S99.921A - Unspecified injury of right foot, initial encounter Qualifiers: Encounter type: initial encounter Qualified Code(s): S99.921A - Unspecified injury of right foot, initial encounter Plan: Recently injured her right foot. Requesting tramadol for acute pain. Orders: Orders Lipid Panel 07/17/24 E78.9 - Disorder of lipoprotein metabolism, unspecified Comprehensive [place]. Panel Fast 07/17/24 Z13.1 - Encounter for screening for diabetes mellitus Referrals Gastroenterology Referral Z12.11 - Encounter for screening for malignant neoplasm of colon Medications: Refilled tramadol Take as needed only for severe pain (scale of 7-10) 50 mg PO BID-TID 3 days PRN 9 tabs 0RF pain S02.40CD - Maxillary fracture, right side, subsequent encounter for fracture with routine healing tramadol Take as needed only for severe pain (scale of 7-10) 50 mg PO BID-TID PRN 9 tabs 0RF pain 3 days S02.40CD - Maxillary fracture, right side, subsequent encounter for fracture with routine healing Coding Level of Care Code Est Pt Level 4 (69259) Diagnoses Mild intermittent asthma without complication J45.20 Asthma complication type: uncomplicated Asthma persistence: intermittent Asthma severity: mild Nicotine dependence, cigarettes, uncomplicated F17.210 SYLVIA (generalized anxiety disorder) F41.1 Borderline high cholesterol E78.9 Screening for diabetes mellitus (DM) Z13.1 Colon cancer screening Z12.11 Injury of right foot, initial encounter S99.921A Encounter type: initial encounter Additional Codes SYLVIA-7 Assessment Billing - SYLVIA-7 Assessment Tool: SYLVIA-7 Assessment 62568 ([id number]) Vital Signs *Quality* - CPT code: 36408 - 4-10 Minutes ([id number])
[2024-07-17 15:11] VITALS: BP 106/64; PULSE 93; O2SAT 96; BMI 24.3
== END 2024-07-17 15:40 | disposition home or self-care (01) ==
PROVIDERS: PCP Physician Assistant; Visit Provider Physician Assistant
DX: J45.20 Mild intermittent asthma, uncomplicated (principal); F17.210 Nicotine dependence, cigarettes, uncomplicated; F41.1 Generalized anxiety disorder; E78.9 Disorder of lipoprotein metabolism, unspecified; S99.921A Unspecified injury of right foot, initial encounter
CPT/HCPCS: 99214

== ENCOUNTER 2024-07-22 15:19 | Outpatient (REF) | payer OTHER, SELFPAY ==
--- NOTE | ~2024-07-22 | CT_ITS ---
EXAMINATION: CT LOW-DOSE SCREENING CHEST WITHOUT CONTRAST CLINICAL INFORMATION: Nicotine dependence, cigarettes, uncomplicated. The patient is a current smoker with a 45 pack-year history of smoking. COMPARISON: CT chest 07/06/2023. X-ray chest 09/07/2021. TECHNIQUE: Multidetector volumetric CT imaging of the chest is performed on a Siemens SOMATOM Definition scanner without contrast using low dose technique. Additional 2D coronal and sagittal reformatted images and axial 3D maximum intensity projection (MIP) images are generated on the CT workstation. This CT examination was performed using dose optimization techniques as appropriate, variously including the following: *Automated exposure control *Adjustment of mA and/or kV according to patient size (this includes techniques or standardized protocols for targeted exams where dose is matched to indication/reason for exam; i.e. extremities or head) *Use of iterative reconstruction technique TOTAL EXAM DLP: 47 mGy-cm. CTDIvol: 1.21 mGy. FINDINGS: PULMONARY NODULES: At the central right apex (4:48), a stable 3 mm noncalcified nodule is seen. At the posterolateral right apex (4:3), a stable 3 mm noncalcified subpleural nodule is seen. At the left apex (5:77), a stable 2 mm noncalcified nodule is seen. There are adjacent small endobronchial densities. No new nodule is seen. LUNGS: No mass, infiltrate or groundglass opacity is seen. There is biapical pleural and parenchymal scarring. There are mild paraseptal predominant emphysematous changes. There are bibasilar scattered foci of minor scar/subsegmental atelectasis, without associated focal airway obstruction. No small airway thickening is seen. The central airways appear patent. MEDIASTINUM: No mediastinal, hilar or axillary adenopathy or free fluid collection. CORONARY ARTERY CALCIFICATION: None visualized on this study. THYROID GLAND: Unremarkable to the extent seen. CARDIOVASCULAR STRUCTURES: Aortic and heart size normal. There is mild atherosclerotic calcification of the thoracic arch. No pericardial effusion. CHEST WALL/AXILLA: Unremarkable. UPPER ABDOMEN: Included portions of the solid organs in the upper abdomen unremarkable on noncontrast imaging. OSSEOUS STRUCTURES: No suspicious focal findings. CT/CT lung screening IMPRESSION: There are stable small biapical nodules. No new nodule, mass, infiltrate or groundglass opacity is seen. There is biapical pleural and parenchymal scarring, and paraseptal emphysematous changes are redemonstrated. No thoracic lymphadenopathy or pleural effusion is seen. There is no aggressive osseous lesion. ASSESSMENT: 1. Lung-RADS Category 2: Benign appearance or behavior of nodules. N/A 2. Lung-RADS Category S: Negative. There are no clinically significant or potentially clinically significant findings not related to the lungs requiring urgent additional evaluation. RECOMMENDATION: Continued routine annual low-dose CT lung screening in 1 year is recommended. An order for CT CHEST LOW DOSE CANCER SCREENING ([id number]) can be placed. Electronically signed by: David Jones MD 08/15/2024 08:48 AM EDT
--- NOTE | ~2024-07-22 | MM_ITS ---
EXAMINATION: MM SCREENING DIGITAL BREAST TOMOSYNTHESIS, BILATERAL CLINICAL INFORMATION: Screening. Asymptomatic. COMPARISON: Mammography: Comparison is made with available priors TECHNIQUE: Digital breast mammography with tomosynthesis is performed in both the craniocaudal and mediolateral oblique views along with computer-aided detection (CAD). FINDINGS: There are scattered areas of fibroglandular density (ACR BI-RADS breast composition Category b). 2 marker clips in the superior left breast from previous needle core biopsy. There are no significant masses, abnormal calcifications, or other abnormalities. MM/MM tomosynthesis screening BI IMPRESSION: No mammographic evidence of malignancy. ASSESSMENT: BI-RADS BI-RADS 2 - Benign Findings RECOMMENDATION: Routine annual mammography screening. 1 year F/U This examination should not preclude the clinical evaluation of a suspicious palpable abnormality. This patient's information was entered into a reminder system with a target due date for their next mammogram. Electronically signed by: Ladonna Tanner DO 08/05/2024 01:36 PM EDT
== END 2024-07-22 15:20 | disposition home or self-care (01) ==
LOC: HO.CT 15:19
PROVIDERS: PCP Physician Assistant; Visit Provider Physician Assistant
DX: Z12.31 Encounter for screening mammogram for malignant neoplasm of breast (principal); Z12.2 Encounter for screening for malignant neoplasm of respiratory organs; F17.210 Nicotine dependence, cigarettes, uncomplicated
CPT/HCPCS: 71271; 77063; 77067

== ENCOUNTER → 2024-07-22 16:15 | Outpatient (BNV) | payer OTHER, SELFPAY | PROVIDERS: PCP Physician Assistant; Visit Provider Internal Medicine | DX: Z12.31 Encounter for screening mammogram for malignant neoplasm of breast (principal) | CPT/HCPCS: 77063; 77067 ==

== ENCOUNTER 2024-09-02 13:29 | Outpatient (AMB) | payer OTHER, SELFPAY ==
--- NOTE | 2024-09-02 13:36 | MHC.OFFVIS ---
Vital Signs 09/02/24 13:38 Height 5 ft 7 in Weight 155 lb BMI 24.3 Intake Visit Reasons: OV discuss surgery lt wrist carpal tunnel Intake Note: Kalyani is a 59 yo right hand dominant female who presents today to discuss left carpal tunnel release. 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 Denies finger locking? Patient denies any surgeries or injuries to the left hand. EMG done 06/14/23 showing bilateral CTS and cubital tunnel syndrome. Right CTR done 09/06/[address] Martinez Allergies famotidine [From Pepcid] Allergy (Severe, Verified 09/02/24 13:43) IV PEPCID-RESP ARREST bee pollen [BEE STINGS] Allergy (Unknown, Verified 09/02/24 13:43) ANAPHYLAXIS cat dander [CATS] Allergy (Unknown, Verified 09/02/24 13:43) UNKNOWN codeine [CODEINE] Allergy (Unknown, Verified 09/02/24 13:43) STOMACH UPSET NSAIDS (Non-Steroidal Anti-Inflamma [NSAIDS (NON-STEROIDAL ANTI-INFLAMMA] Allergy (Unknown, Verified 09/02/24 13:43) STOMACH ULCERS strawberry [STRAWBERRY] Allergy (Unknown, Verified 09/02/24 13:43) HIVESD Antihistamines - Alkylamine Adverse Reaction (Mild, Verified 09/02/24 13:43) Agitated ibuprofen Adverse Reaction (Unknown, Verified 09/02/24 13:43) ulcer HAYFEVER Allergy (Unknown, Uncoded 09/02/24 13:43) UNKNOWN HPI HPI OV discuss surgery lt wrist carpal tunnel: Details: Kalyani is a 59 year old right hand dominant woman here to discuss her left carpal tunnel syndrome. She has a Hx of a right carpal tunnel release, DOS 09/06/23. 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 She complains of numbness in the median nerve distribution of her left hand. She says her fingers are numb and tingling all the time . She denies any small finger numbness bilaterally. Regarding the right hand, she says her sensation is back to normal and she is very happy with it. She reports that she is now back to painting, which she is very happy about. 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 She reports a hx of fibromyalgia, Parkinson's disease (does not follow Neurology), and Raynaud's. She says she is unable to take NSAIDs due to stomach ulcers. She is a smoker and was recently diagnosed with Emphysema. [facility] Medical History Ulnar neuropathy at elbow Osteopenia Nicotine dependence, cigarettes, uncomplicated Maxillary fracture Colitis PTSD (post-traumatic stress disorder) History of depression History of anxiety History of fibromyalgia Asthma Hx of migraine headaches Parkinson disease Restless leg syndrome Adhesion of intestine Surgical History History of endoscopy History of colonoscopy History of abdominal surgery History of tubal ligation History of section History of partial colectomy History of loop electrical excision procedure (LEEP) Family History Mother Cervical cancer Ovarian cancer Colon cancer Sister Breast cancer Family/Other Mental health disorder Substance use disorder Social History Housing: Condominium Alcohol intake: current Alcohol intake frequency: a few times a week Alcohol type: beer Patient Tobacco Use Status: Current everyday Tobacco user Tobacco use type: Cigarette Cigarettes Per Day: 10 Years Smoked: (onset 14yo, 1/2-1ppd x 44yrs, now 1/4-1/2ppd - 30pyh) e-Cigarette/Vaping Use: Never Used Second Hand Smoke Exposure: No service: Yes Current occupational status: disabled 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 Cognitive needs: No Hearing needs: No Vision needs: Yes Physical Exam Vital Signs: BMI result Body Mass Index 24.3 Extrem Other: Evaluation of Left Upper Extremity: The patient is alert, oriented, and in no acute distress Neuro: Decased sensation to the thumb, normla sensation to the index & middle fingers. Normal sensation in the ulnar nerve distribution No thenar or intrinsic wasting Good APB muscle belly firing and good finger cross Vascular: Cap refill brisk ROM: She can make a fist and extend all her digits No locking or catching Nerve Conduction Study: IMPRESSION: 1. [id number] bilateral median neuropathy across carpal tunnel. 2. Mild bilateral ulnar neuropathy across cubital tunnel. Rodo Becerra MD 06/14/2023 Assessment & Plan Assessment & Plan (1) Bilateral carpal tunnel syndrome: Code(s): G56.03 - Carpal tunnel syndrome, bilateral upper limbs Category: Medical (2) Cubital tunnel syndrome, bilateral: Code(s): G56.23 - Lesion of ulnar nerve, bilateral upper limbs Category: Medical (3) Osteoarthritis of thumbs, bilateral: Code(s): M18.0 - Bilateral primary osteoarthritis of first carpometacarpal joints Category: Medical (4) Right wrist pain: Code(s): M25.531 - Pain in right wrist Category: Medical Plan Assessment & Plan: 1. Left Carpal tunnel syndrome, mild-moderate Symptoms intermittent, but daily, worse at night, decreased sensation to the thumb today I educated her about this condition I discussed operative and non-operative treatment options The patient would like to proceed with surgery The risks and benefits of operative treatment were discussed with the patient and the patient wishes to proceed with surgery. These risks include, but are not limited to risk of damage to blood vessels, nerves, tendons, infection, recurrence, incomplete relief of preoperative symptoms, persistent pain, possible need for further surgery and the risks associated with regional blocks and anesthesia. The plan is to take the patient to the operating room sometime in the next few weeks for the following procedures: 1. Left Carpal tunnel release, under local All of the preoperative paperwork including the consent was filled out today. All the patient's questions were answered. The patient understands that they will be contacted by our atmospheric technician soon to schedule this procedure She denies Diabetes, blood thinners, asthma, heart, lung, kidney issues 2. Right Carpal tunnel syndrome, S/P release DOS: 09/06/23 Pre-operatively with dense numbness Now with normal sensation & good resolution of her symptoms 3. Bilateral STT joint osteoarthritis No complaints today 4. Right radial sided wrist pain No complaints today 5. Left Cubital tunnel syndrome, mild Asymptomatic and no complaints today This will be managed conservatively for now 6. Right Cubital tunnel syndrome, mild Asymptomatic and no complaints today This will be managed conservatively for now Scribed for Miriam Martinez MD by Bradley Fajardo medical care evaluation specialist, on 09/02/24 at 1:55 PM, EST. Coding Level of Care Code Est Pt Level 4 (09411) Diagnoses Bilateral carpal tunnel syndrome G56.03 Cubital tunnel syndrome, bilateral G56.23 Osteoarthritis of thumbs, bilateral M18.0 Right wrist pain M25.531
[2024-09-02 13:38] VITALS: BMI 24.3
--- NOTE | 2024-09-02 13:38 | MHC.OFFVIS ---
Vital Signs 09/02/24 13:38 Height 5 ft 7 in Weight 155 lb BMI 24.3 Intake Visit Reasons: OV discuss surgery lt wrist carpal tunnel Intake Note: . Allergies famotidine [From Pepcid] Allergy (Severe, Verified 09/02/24 13:43) IV PEPCID-RESP ARREST bee pollen [BEE STINGS] Allergy (Unknown, Verified 09/02/24 13:43) ANAPHYLAXIS cat dander [CATS] Allergy (Unknown, Verified 09/02/24 13:43) UNKNOWN codeine [CODEINE] Allergy (Unknown, Verified 09/02/24 13:43) STOMACH UPSET NSAIDS (Non-Steroidal Anti-Inflamma [NSAIDS (NON-STEROIDAL ANTI-INFLAMMA] Allergy (Unknown, Verified 09/02/24 13:43) STOMACH ULCERS strawberry [STRAWBERRY] Allergy (Unknown, Verified 09/02/24 13:43) HIVESD Antihistamines - Alkylamine Adverse Reaction (Mild, Verified 09/02/24 13:43) Agitated ibuprofen Adverse Reaction (Unknown, Verified 09/02/24 13:43) ulcer HAYFEVER Allergy (Unknown, Uncoded 09/02/24 13:43) UNKNOWN [facility] Medical History Ulnar neuropathy at elbow Osteopenia Nicotine dependence, cigarettes, uncomplicated Maxillary fracture Colitis PTSD (post-traumatic stress disorder) History of depression History of anxiety History of fibromyalgia Asthma Hx of migraine headaches Parkinson disease Restless leg syndrome Adhesion of intestine Surgical History History of endoscopy History of colonoscopy History of abdominal surgery History of tubal ligation History of section History of partial colectomy History of loop electrical excision procedure (LEEP) Family History Mother Cervical cancer Ovarian cancer Colon cancer Sister Breast cancer Family/Other Mental health disorder Substance use disorder Social History Housing: Condominium Alcohol intake: current Alcohol intake frequency: a few times a week Alcohol type: beer Patient Tobacco Use Status: Current everyday Tobacco user Tobacco use type: Cigarette Cigarettes Per Day: 10 Years Smoked: (onset 14yo, 1/2-1ppd x 44yrs, now 11/15-1/2ppd - 30pyh) e-Cigarette/Vaping Use: Never Used Second Hand Smoke Exposure: No service: Yes Current occupational status: disabled 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
== END 2024-09-02 14:04 | disposition home or self-care (01) ==
PROVIDERS: PCP Physician Assistant; Visit Provider Orthopaedic Surgery
DX: G56.03 Carpal tunnel syndrome, bilateral upper limbs (principal); G56.23 Lesion of ulnar nerve, bilateral upper limbs; M18.0 Bilateral primary osteoarthritis of first carpometacarpal joints
CPT/HCPCS: 99214

== ENCOUNTER → 2024-09-02 13:29 | Outpatient (BNVA) | payer OTHER, SELFPAY | PROVIDERS: PCP Physician Assistant; Visit Provider Orthopaedic Surgery | DX: G56.03 Carpal tunnel syndrome, bilateral upper limbs (principal); G56.23 Lesion of ulnar nerve, bilateral upper limbs; M18.0 Bilateral primary osteoarthritis of first carpometacarpal joints; M25.531 Pain in right wrist | CPT/HCPCS: 99212 ==

== ENCOUNTER 2024-10-23 10:20 | Day surgery (SDC) | payer OTHER, SELFPAY ==
[2024-10-23 13:16] VITALS: BMI 24.3
--- NOTE | 2024-10-23 13:19 | P.OP_ITS ---
Operative Note Operative Note Date of Service: 10/23/24 Narrative: Preop diagnosis: 1. Left Carpal tunnel syndrome Postop diagnosis: same Procedure: 1. Left Carpal tunnel release Surgeon: Miriam Martinez MD Drapery Inspector: Myles CASTRO Anesthesia: local block using 1% lidocaine with epinephrine Findings: Thickened transverse carpal ligament. EBL: Less than 5 mL Specimens: None Complications: None Disposition: Brought to recovery room in stable condition Plan: Follow-up for 10-14 days for wound check and suture removal Indications: The patient is 59 years old, with left carpal tunnel syndrome that has been unresponsive to nonoperative management. The risks and benefits of operative treatment including but not limited to risk of damage to blood vessels, nerves, tendons, infection, persistent pain, persistent symptoms, or possible need for additional surgery were discussed with the patient and the patient wishes to proceed with surgery. Procedure: Once consent was obtained a local block was performed using a combination of 1% lidocaine with epinephrine. The patient was then brought back to the operating suite and placed on the operative table in supine position. The left upper extremity was prepped and draped in a standard surgical fashion. Once assured that we had a good block, a 2.0 cm longitudinal incision was made centered over the carpal tunnel. The incision was made through the skin to the subcutaneous tissues using a #15 blade. Dissection was made down to the level of the transverse carpal ligament with care being taken to protect the palmar cutaneous nerve. Once the transverse carpal ligament was clearly visualized, a longitudinal incision was made in the transverse carpal ligament 1st using a #15 blade, then using tenotomy scissors under direct visualization. Care was taken to look for and protect the motor branch of the median nerve when seen in this area. Once satisfied with our carpal tunnel release the wound was copiously irrigated with normal saline and hemostasis was obtained with a brief period of local pressure. The skin edges were reapproximated with some 5.0 nylon suture material and a sterile dressing was applied. The patient appears to have tolerated the procedure well and with no complications. All digits were well vascularized at the conclusion of the case.
--- NOTE | 2024-10-23 13:19 | MHC.SHP ---
Pre-Procedural Eval Section A - 24 Hr Update-Section A only Date of Service: 10/23/24 The patient is an INPATIENT: No Changes since office visit: No Cold of Flu in the past 2 weeks, No New Medical Problems, No Changes in Medication and No Patient answered all questions The patient has been examined within 24 hours of the surgical procedure. The History & Physical has been completed within 30 days and I have reviewed it.: Yes Section B - Complete if H&P > 30 days Chief Complaint: Carpal tunnel syndrome, left upper limb Allergies: Allergies Allergy/AdvReac Type Severity Reaction Status Date / Time famotidine [From Pepcid] Allergy Severe IV Verified 10/23/24 12:59 PEPCID-RESP ARREST bee pollen [BEE STINGS] Allergy Unknown ANAPHYLAXIS Verified 10/23/24 12:59 cat dander [CATS] Allergy Unknown UNKNOWN Verified 10/23/24 12:59 codeine [CODEINE] Allergy Unknown STOMACH Verified 10/23/24 12:59 UPSET NSAIDS (Non-Steroidal Allergy Unknown STOMACH Verified 10/23/24 12:59 Anti-Inflamma ULCERS [NSAIDS (NON-STEROIDAL ANTI-INFLAMMA] strawberry [STRAWBERRY] Allergy Unknown HIVESD Verified 10/23/24 12:59 Antihistamines - Alkylamine AdvReac Mild Agitated Verified 10/23/24 12:59 ibuprofen AdvReac Unknown ulcer Verified 10/23/24 12:59 HAYFEVER Allergy Unknown UNKNOWN Uncoded 09/02/24 13:43 Plan Diagnosis/Plan: Unchanged I have reviewed the history and physical and performed a pertinent physical examination on my patient. No changes have occurred unless specified. Time Spent With Patient Time: Total time managing care of this patient today ____ minutes.
[2024-10-23 14:26] VITALS: BP 121/73; PULSE 93; RESP 16; O2SAT 100
== END 2024-10-23 14:32 | disposition home or self-care (01) ==
PROVIDERS: PCP Physician Assistant; Visit Provider Orthopaedic Surgery
PROC: (CPT 64721; principal; 2024-10-23 12:50)
DX: G56.02 Carpal tunnel syndrome, left upper limb (principal); R20.0 Anesthesia of skin; R20.2 Paresthesia of skin; M18.0 Bilateral primary osteoarthritis of first carpometacarpal joints; G20.A1 Parkinson's disease without dyskinesia, without mention of fluctuations; G25.81 Restless legs syndrome; M79.7 Fibromyalgia; J45.909 Unspecified asthma, uncomplicated; I73.00 Raynaud's syndrome without gangrene; M85.80 Other specified disorders of bone density and structure, unspecified site; Z90.49 Acquired absence of other specified parts of digestive tract; Z98.890 Other specified postprocedural states; Z88.5 Allergy status to narcotic agent; Z88.8 Allergy status to other drugs, medicaments and biological substances; Z88.6 Allergy status to analgesic agent; F17.210 Nicotine dependence, cigarettes, uncomplicated
CPT/HCPCS: 64721; J0171; J2003

== ENCOUNTER → 2024-10-23 10:20 | Outpatient (BNV) | payer OTHER, SELFPAY | PROVIDERS: PCP Physician Assistant; Visit Provider Orthopaedic Surgery | DX: G56.02 Carpal tunnel syndrome, left upper limb (principal) | CPT/HCPCS: 64721 ==

== ENCOUNTER 2024-11-07 14:23 | Outpatient (AMB) | payer OTHER, SELFPAY ==
[2024-11-07 14:27] VITALS: BMI 24.3
--- NOTE | 2024-11-07 14:27 | MHC.OFFVIS ---
Vital Signs 11/07/24 14:27 Height 5 ft 8 in Weight 160 lb BMI 24.3 Intake Visit Reasons: PO: Left CTR 10/23/24 AR Intake Note: Kalyani 59 yr old - hand dominant female presents today for her P/O visit for her Left CTR 10/23/24 AR. States symptoms have improved. Sutures removed and steri strips applied in office. Allergies famotidine [From Pepcid] Allergy (Severe, Verified 11/07/24 14:35) IV PEPCID-RESP ARREST bee pollen [BEE STINGS] Allergy (Unknown, Verified 11/07/24 14:35) ANAPHYLAXIS cat dander [CATS] Allergy (Unknown, Verified 11/07/24 14:35) UNKNOWN codeine [CODEINE] Allergy (Unknown, Verified 11/07/24 14:35) STOMACH UPSET NSAIDS (Non-Steroidal Anti-Inflamma [NSAIDS (NON-STEROIDAL ANTI-INFLAMMA] Allergy (Unknown, Verified 11/07/24 14:35) STOMACH ULCERS strawberry [STRAWBERRY] Allergy (Unknown, Verified 11/07/24 14:35) HIVESD Antihistamines - Alkylamine Adverse Reaction (Mild, Verified 11/07/24 14:35) Agitated ibuprofen Adverse Reaction (Unknown, Verified 11/07/24 14:35) ulcer HAYFEVER Allergy (Unknown, Uncoded 11/07/24 14:35) UNKNOWN HPI HPI PO: Left CTR 10/23/24 AR: Details: Patient is a 59 year female who presents for postoperative evaluation status post left carpal tunnel release, DOS 10/23/2024. Patient reports no complaints or concerns at this time. Symptoms have completely resolved. No other acute complaints or concerns at this time. ON LICENSE OF [facility] Medical History Ulnar neuropathy at elbow Osteopenia Nicotine dependence, cigarettes, uncomplicated Maxillary fracture Colitis PTSD (post-traumatic stress disorder) History of depression History of anxiety History of fibromyalgia Asthma Hx of migraine headaches Parkinson disease Restless leg syndrome Adhesion of intestine Surgical History (Reviewed 11/07/24 @ 14:37 by Geri Hernandez [facility]) History of endoscopy History of colonoscopy History of abdominal surgery History of tubal ligation History of section History of partial colectomy History of loop electrical excision procedure (LEEP) Family History Mother Cervical cancer Ovarian cancer Colon cancer Sister Breast cancer Family/Other Mental health disorder Substance use disorder Social History Housing: Condominium Are you a primary rn coronary care unit to a significant other at home: No Do you presently have visiting nurse or other home services: No Alcohol intake: current Alcohol intake frequency: a few times a week Alcohol type: beer Patient Tobacco Use Status: Current everyday Tobacco user Tobacco use type: Cigarette Cigarettes Per Day: 2 Years Smoked: (onset 14yo, 1/2-1ppd x 44yrs, now 11/15-1/2ppd - 30pyh) e-Cigarette/Vaping Use: Never Used Second Hand Smoke Exposure: No service: Yes Current occupational status: disabled 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 Neuro: Normal sensation of the tips of all digits of the left hand at this time Vascular: Cap refill brisk Pain: No tenderness to palpation about the incision site of the left volar wrist No pain with range of motion ROM: Patient is able to flex and extend all digits of the left hand fully and without difficulty Skin: Well approximated and well healing incision site noted on the volar aspect of the patient's left wrist General: No ecchymosis, erythema, or evidence of infection. Psych: Appears grossly normal Affect normal Attitude cooperative Assessment & Plan Assessment & Plan (1) Cubital tunnel syndrome, bilateral: Code(s): G56.23 - Lesion of ulnar nerve, bilateral upper limbs Category: Medical Plan 1. Left carpal tunnel syndrome status post carpal tunnel release DOS 10/23/2024 Patient appears to be recovering well postoperatively Patient is educated about the typical recovery course At this time, patient is informed she requires no acute follow-up, as she appears to be recovering very well Patient was amenable to this plan Patient will follow-up as needed with any acute concerns Coding Level of Care Code Global (20604) Diagnoses Cubital tunnel syndrome, bilateral G56.23
== END 2024-11-07 14:37 | disposition home or self-care (01) ==
PROVIDERS: PCP Physician Assistant
DX: G56.23 Lesion of ulnar nerve, bilateral upper limbs (principal)
CPT/HCPCS: 99024

== ENCOUNTER → 2024-11-07 14:23 | Outpatient (BNVA) | payer OTHER, SELFPAY | PROVIDERS: PCP Physician Assistant | DX: G56.21 Lesion of ulnar nerve, right upper limb (principal); Z09 Encounter for follow-up examination after completed treatment for conditions other than malignant neoplasm; Z98.890 Other specified postprocedural states | CPT/HCPCS: 99212 ==

== ENCOUNTER 2025-03-17 16:09 | Outpatient (REF) | payer OTHER, SELFPAY ==
--- NOTE | ~2025-03-17 | XR_ITS ---
EXAMINATION: XR CHEST CLINICAL INFORMATION: Z20.818 - Contact with and (suspected) exposure to other bacterial commu... COMPARISON: None available. TECHNIQUE: 2 views of the chest were obtained. FINDINGS: No significant abnormality is noted involving the heart, lungs, mediastinum, bony thorax or soft tissues. XR/XR chest 2V IMPRESSION: Unremarkable chest examination. Electronically signed by: German Gilmore MD 03/18/2025 07:09 AM EDT
[2025-03-17 18:11] LABS: Alanine Aminotransferase 27 U/L (0-31); Albumin Level 4.4 g/dL (3.5-5.0); Alkaline Phosphatase 102 U/L (39-117); Anion Gap 14 (12-20); Aspartate Amino Transferase 26 U/L (5-31); Bilirubin Total 0.4 mg/dL (0.0-1.0); Blood Urea Nitrogen 16 mg/dL (9-16); Calcium 9.5 mg/dL (8.4-10.2); Carbon Dioxide 22 mmol/L (22-29); Chloride 107 mmol/L (96-108); Cholesterol 225 mg/dL (<200); Estimated Glomerular Filt Rate > 60; Glucose Fasting 101 mg/dL (60-99); HDL Cholesterol 82 mg/dL (>40); LDL Cholesterol Calculated 127 mg/dL (<100); Potassium 5.1 mmol/L (3.3-5.1); Sodium 138 mmol/L (135-145); Total Protein 7.3 g/dL (6.5-8.0); Triglycerides 81 mg/dL (<150)
[2025-03-21 21:28] LABS: Pertussis Testing 7 IU/mL
== END 2025-03-17 16:10 | disposition home or self-care (01) ==
LOC: HO.XRAY 16:09
PROVIDERS: PCP Physician Assistant; Visit Provider Physician Assistant
DX: Z20.818 Contact with and (suspected) exposure to other bacterial communicable diseases (principal); E78.9 Disorder of lipoprotein metabolism, unspecified; Z13.1 Encounter for screening for diabetes mellitus
CPT/HCPCS: 36415; 71046; 80053; 80061; 86615

== ENCOUNTER → 2025-03-17 16:20 | Outpatient (BNV) | payer OTHER, SELFPAY | PROVIDERS: PCP Physician Assistant; Visit Provider Radiology Diagnostic Radiology | DX: Z20.818 Contact with and (suspected) exposure to other bacterial communicable diseases (principal) | CPT/HCPCS: 71046 ==

== ENCOUNTER 2025-11-11 13:02 | Outpatient (REF) | payer OTHER, SELFPAY ==
--- NOTE | ~2025-11-11 | XR_ITS ---
EXAMINATION: XR CHEST CLINICAL INFORMATION: R05.9 - Cough, unspecified COMPARISON: 03/17/2025. TECHNIQUE: 2 views of the chest were obtained. FINDINGS: The cardiac, hilar, and mediastinal contours are normal. Lungs demonstrate patchy right middle lobe opacity suspicious for pneumonia. Lungs otherwise clear. There is no pneumothorax or pleural effusion. There is no focal osseous or soft tissue abnormality. XR/XR chest 2V IMPRESSION: Patchy right middle lobe opacity suspicious for pneumonia. Electronically signed by: Arjun Farias MD 11/11/2025 01:42 PM [facility]
--- NOTE | ~2025-11-11 | XR_ITS ---
EXAMINATION: XR ELBOW 3 VIEWS RIGHT HISTORY: M25.521 - Pain in right elbow COMPARISON: Comparison is made with the prior examination dated 09/07/2021. FINDINGS: Three views of the right elbow are submitted. Osseous mineralization is normal. There is no fracture or dislocation. The joint spaces are preserved. The soft tissues are unremarkable. There is no joint effusion. XR/XR elbow RT min 3V IMPRESSION: Unremarkable examination of the right elbow. Electronically signed by: Lev Monsivais MD 11/11/2025 01:41 PM EST
[2025-11-11 14:27] LABS: Hematocrit 50.7 % (37.0-47.0); Hemoglobin 16.4 g/dl (12.0-16.0); Mean Corpuscular HGB Conc 32.3 g/dl (31.0-35.0); Mean Corpuscular Hemoglobin 32.6 pg (27.0-33.0); Mean Corpuscular Volume 100.8 fL (80.0-98.0); NRBC Abs Auto 0.000 X10*3/uL (0.0-0.012); NRBC Pct Auto 0.0 /100WBC (0.0-0.2); Platelet Count 227 X10*3/uL (160-400); Red Blood Count 5.03 X10*6/uL (4.20-5.50); White Blood Count 5.9 X10*3/uL (4.8-10.8)
[2025-11-11 14:53] LABS: Alanine Aminotransferase 22 U/L (0-31); Albumin Level 4.3 g/dL (3.5-5.0); Alkaline Phosphatase 104 U/L (39-117); Anion Gap 9 (12-20); Aspartate Amino Transferase 30 U/L (5-31); Blood Urea Nitrogen 19 mg/dL (9-16); Calcium 9.7 mg/dL (8.4-10.2); Carbon Dioxide 27 mmol/L (22-29); Chloride 109 mmol/L (96-108); Cholesterol 232 mg/dL (<200); Estimated Glomerular Filt Rate > 60; HDL Cholesterol 73 mg/dL (>40); Potassium 4.4 mmol/L (3.3-5.1); Sodium 141 mmol/L (135-145); Total Protein 7.0 g/dL (6.5-8.0); Triglycerides 91 mg/dL (<150)
== END 2025-11-11 13:03 | disposition home or self-care (01) ==
LOC: HO.XRAY 13:02
PROVIDERS: Physician Assistant; PCP Internal Medicine; Visit Provider Internal Medicine
DX: J45.20 Mild intermittent asthma, uncomplicated (principal); E78.9 Disorder of lipoprotein metabolism, unspecified; R05.9 Cough, unspecified; M25.521 Pain in right elbow
CPT/HCPCS: 71046; 73080; 80053; 80061; 85027

== ENCOUNTER → 2025-11-11 13:26 | Outpatient (BNV) | payer OTHER, SELFPAY | PROVIDERS: PCP Internal Medicine; Visit Provider Radiology Diagnostic Radiology | DX: R91.8 Other nonspecific abnormal finding of lung field (principal); M25.521 Pain in right elbow | CPT/HCPCS: 71046; 73080 ==